=== PATIENT | male | born 1940 | race Caucasian/White ===

== ENCOUNTER 2016-08-14 10:03 | Observation (INO) ==
--- NOTE | 2016-08-14 10:16 | Emergency Department Note ---
Disposition Clinical Impression: Weakness, Elevated troponin I level, Atypical chest pain Disposition: Admitted As Inpatient Condition: Fair Referrals: Beto Guzman MD [Primary Care Provider] - Forms: ED Satisfaction Letter URI/Sore Throat HPI - General Chief Complaint: ED Weakness Stated Complaint: Weakness, chills, cough Time Seen by Provider: 08/14/16 10:10 Source: patient, family Mode of arrival: private vehicle Limitations: no limitations Nursing Notes Reviewed: Yes Vital Signs Reviewed: Yes - History of Present Illness HPI Narrative: Patient reports he had a routine screening colonoscopy on July 19 after which he has had increased generalized weakness. Reportedly has had weakness preceding the colonoscopy as well. He presents today saying that just that he feels "lousy all over" and weak. He reports he occasionally will get some chest heaviness without diaphoresis. His chest discomfort is not exertional. Denies any palpitations. He does report some coughing and producing phlegm for 2-3 days. He states he has had some mild shortness of breath with that. He denies fever, nausea, vomiting or abdominal pain. He has not been having diarrhea or difficulty with bowel function. He denies blood or mucus in stools. Denies any lower extremity swelling, immobilization or injury. He denies any ill exposures. He denies feeling this fatigued in the past. He does report that he occasionally does have some dizziness with standing but has not fallen or had any injuries. He states he has not had any evaluation from his family doctor for weakness. Pt Subjective Complaint: cough, other (Weakness) Onset (ago): week(s) Duration: gradually worsening Severity: moderate Improves with: nothing Worsens with: exertion If sputum, description: other (Unable to describe) Associated symptoms: Reports: cough, chest pain, shortness of breath. Denies: fever, chills, voice changes, myalgias, diaphoresis, headache, rhinorrhea, nasal congestion, sore throat, stiff neck, abdominal pain, nausea, vomiting, diarrhea, dysuria, rash, epistaxis, ear pain Treatments prior to arrival: none - Related Data Home Medications Medication Instructions Recorded Confirmed Aspirin 81 mg PO DAILY 05/12/15 08/14/16 Atorvastatin [Lipitor] 80 mg PO HS 05/12/15 08/14/16 Carvedilol [Coreg] 6.25 mg PO BIDWM 05/12/15 08/14/16 Lansoprazole [Prevacid] 30 mg PO DAILY 05/12/15 08/14/16 Lisinopril [Zestril] 10 mg PO DAILY 05/12/15 08/14/16 Phenytoin [Dilantin] 400 mg PO DAILY 05/12/15 08/14/16 Aloe Vera 50 mg PO DAILY 07/19/16 08/14/16 Cholecalciferol (D-3) [Vitamin D] 3,000 unit PO DAILY 07/19/16 08/14/16 Fluticasone Propionate Nasal 2 spray NS BID 07/19/16 08/14/16 [Flonase] Nitroglycerin [Nitrostat] 0.4 mg SL AD PRN 07/19/16 08/14/16 Venlafaxine HCl [Venlafaxine HCl 75 mg PO DAILY 07/19/16 08/14/16 ER] Omega3,5,6,7,9 No.1/[place] Oil 2 each PO QAM 08/14/16 08/14/16 [Complete [place] Softgel] Previous Rx's Medication Instructions Recorded LORazepam [Ativan] 0.5 mg PO TID PRN #10 tablet 06/21/16 Allergies Allergy/AdvReac Type Severity Reaction Status Date / Time morphine Allergy Hives Verified 06/21/16 21:03 Penicillins [PCN] Allergy Hives Verified 06/21/16 21:03 propoxyphene [From Darvon] Allergy Hives Verified 06/21/16 21:03 All systems ED: reviewed and negative except as stated. URI PMH - Past Medical History Medical history: Reports: diabetes, GERD, hyperlipidemia, hypertension, myocardial infarction, seizures, other Surgical history: Reports: angioplasty/stent, appendectomy, cholecystectomy, knee replacement Psychiatric history: Reports: depression - Social History Smoking Status: Never smoker Alcohol use: Reports: none Drug use: Reports: none Physical Exam - General Limitations: no limitations General appearance: alert, in no apparent distress - Head Head exam: atraumatic, normocephalic, normal inspection - Eye Eye exam: Present: normal appearance, PERRL, EOMI. Absent: scleral icterus, conjunctival injection - ENT ENT exam: normal exam, normal oropharynx, mucous membranes moist - Neck Neck exam: Present: normal inspection, full ROM, trachea midline - Chest Chest inspection: Present: normal inspection, symmetric chest wall rise - Respiratory Respiratory exam: Present: normal lung sounds bilaterally. Absent: respiratory distress, wheezes, prolonged expiratory phase - Cardiovascular Cardiovascular exam: Present: regular rate, normal rhythm, normal heart sounds. Absent: tachycardia - Abdominal Exam Abdominal exam: Present: soft, Non-Tender, normal bowel sounds. Absent: tenderness, distention, guarding, rebound, rigidity - Extremities Exam Extremities exam: Present: normal inspection, full ROM, normal capillary refill. Absent: tenderness, pedal edema, calf tenderness - Expanded Lower Extremity Exam Neurovascular/Tendon exam: Present: normal capillary refill. Absent: motor deficit, sensory deficit, tendon deficit Gait: observed and normal - Back Exam Back exam: Present: normal inspection, full ROM. Absent: tenderness - Neurological Exam Neurological exam: Present: alert, oriented X3, normal gait. Absent: motor sensory deficit - Psychiatric Psychiatric exam: Present: depressed, flat affect - Skin Skin exam: Present: warm, dry, intact, normal color. Absent: rash, diaphoresis , pallor Course Course Narrative: 1240: Care has been discussed with Dr. Arguelles in person. I reviewed the patient' s presentation, labs and x-ray and EKG with him. He is agreeable with him staying at this facility for serial troponins and some gentle hydration. Vital Signs Temperature 97.8 F 08/14/16 10:08 Pulse Rate 106 08/14/16 10:08 Respiratory Rate 18 08/14/16 10:08 Blood Pressure 118/69 08/14/16 10:08 O2 Sat by Pulse Oximetry 99 08/14/16 10:08 Temperature 97.8 F 08/14/16 10:10 Pulse Rate 81 08/14/16 12:09 Respiratory Rate 18 08/14/16 12:09 Blood Pressure 129/67 08/14/16 12:09 O2 Sat by Pulse Oximetry 96 08/14/16 12:09 Oxygen Delivery Oxygen Delivery Room Air Upper Respiratory Infection - Differential Diagnosis Differential Diagnosis: Likely: upper respiratory infection - Medical Records Medical records reviewed: Yes I reviewed the patient's medical records. - Lab Data Lab results reviewed: Yes I reviewed the patient's lab results. Result diagrams: 08/14/16 10:29 08/14/16 10:29 Lab Results 03/06/17 03/06/17 03/06/17 Range/Units 10:29 10:29 10:29 WBC 8.9 (4.3-11.1) K/mcL RBC 4.25 (4.19-5.50) M/mcL Hgb 13.4 (12.9-16.9) g/dL Hct 36.9 L (37.5-50.1) % MCV 86.8 (83.0-100.0) fL MCH 31.5 (28.0-33.3) pg MCHC 36.3 H (31.6-35.5) g/dL RDW 12.8 (11.5-14.5) % Plt Count 175 (140-400) K/mcL MPV 9.2 L (9.4-12.4) fL Immature Gran % 0.2 (0-4) % Seg Neutrophils % 61.9 % Lymphocytes % 24.8 % Monocytes % 10.2 % Eosinophils % 2.7 % Basophils % 0.2 % Neutrophils # 5.5 (1.6-8.9) K/mcL Lymphocytes # 2.2 (0.6-4.6) K/mcL Monocytes # 0.9 (0.0-1.3) K/mcL Eosinophils # 0.2 (0.0-0.6) K/mcL Basophils # 0.0 (0.0-0.2) K/mcL Sodium 132 L (136-145) mEq/L Potassium 4.6 H (3.5-4.5) mEq/L Chloride 99 (98-109) mEq/L Carbon Dioxide 23 (19-29) mEq/L BUN 15 (8-26) mg/dL Creatinine 0.86 (0.72-1.25) mg/dL Est GFR ( Amer) > 60 (> 60) Est GFR (Non-Af Amer) > 60 (> 60) BUN/Creatinine Ratio 17 (6-26) Glucose 109 H (70-99) mg/dL POC Glucose (58-89) Calculated Osmolality 275 L (280-300) Calcium 9.4 (8.6-10.8) mg/dL Total Bilirubin (0.2-1.2) mg/dL Direct Bilirubin (0.0-0.5) mg/dL Indirect Bilirubin (0.0-1.2) mg/dL AST (5-34) Units/L ALT (0-55) Units/L Alkaline Phosphatase (38-126) Units/L Troponin I 0.08 H* (0-0.03) ng/mL Serum Total Protein (6.0-8.3) g/dL Albumin (3.5-5.0) g/dL Globulin (2.4-3.5) g/dL Albumin/Globulin Ratio (1.1-2.2) TSH 1.399 (0.350-4.840) mcIU/mL Urine Color (Yellow) Urine Clarity (Clear) Urine pH (5.0-8.0) pH Units Ur Specific [place] (1.010-1.025) Urine Protein (Neg-Trace) mg/dL Urine Glucose (UA) (Normal) mg/dL Urine Ketones (Negative) mg/dL Urine Blood (Negative) Urine Nitrite (Negative) Urine Bilirubin (Negative) Urine Urobilinogen (Normal) mg/dL Ur Leukocyte Esterase (Negative) Urine Microscopic RBC (0-3) per hpf Urine Microscopic WBC (0-3) per hpf Urine Bacteria (None-Few) per hpf Ur Culture Indicated? (NO) 08/14/16 08/14/16 08/14/16 Range/Units 10:29 10:38 10:52 WBC (4.3-11.1) K/mcL RBC (4.19-5.50) M/mcL Hgb (12.9-16.9) g/dL Hct (37.5-50.1) % MCV (83.0-100.0) fL MCH (28.0-33.3) pg MCHC (31.6-35.5) g/dL RDW (11.5-14.5) % Plt Count (140-400) K/mcL MPV (9.4-12.4) fL Immature Gran % (0-4) % Seg Neutrophils % % Lymphocytes % % Monocytes % % Eosinophils % % Basophils % % Neutrophils # (1.6-8.9) K/mcL Lymphocytes # (0.6-4.6) K/mcL Monocytes # (0.0-1.3) K/mcL Eosinophils # (0.0-0.6) K/mcL Basophils # (0.0-0.2) K/mcL Sodium (136-145) mEq/L Potassium (3.5-4.5) mEq/L Chloride (98-109) mEq/L Carbon Dioxide (19-29) mEq/L BUN (8-26) mg/dL Creatinine (0.72-1.25) mg/dL Est GFR ( Amer) (> 60) Est GFR (Non-Af Amer) (> 60) BUN/Creatinine Ratio (6-26) Glucose (70-99) mg/dL POC Glucose 121 H (58-89) Calculated Osmolality (280-300) Calcium (8.6-10.8) mg/dL Total Bilirubin 0.4 (0.2-1.2) mg/dL Direct Bilirubin 0.2 (0.0-0.5) mg/dL Indirect Bilirubin 0.2 (0.0-1.2) mg/dL AST 19 (5-34) Units/L ALT 20 (0-55) Units/L Alkaline Phosphatase 75 (38-126) Units/L Troponin I (0-0.03) ng/mL Serum Total Protein 7.1 (6.0-8.3) g/dL Albumin 3.8 (3.5-5.0) g/dL Globulin 3.3 (2.4-3.5) g/dL Albumin/Globulin Ratio 1.2 (1.1-2.2) TSH (0.350-4.840) mcIU/mL Urine Color Yellow (Yellow) Urine Clarity Clear (Clear) Urine pH 7.0 (5.0-8.0) pH Units Ur Specific [place] 1.015 (1.010-1.025) Urine Protein Negative (Neg-Trace) mg/dL Urine Glucose (UA) Normal (Normal) mg/dL Urine Ketones Negative (Negative) mg/dL Urine Blood Small H (Negative) Urine Nitrite Negative (Negative) Urine Bilirubin Negative (Negative) Urine Urobilinogen Normal (Normal) mg/dL Ur Leukocyte Esterase Negative (Negative) Urine Microscopic RBC 3-5 H (0-3) per hpf Urine Microscopic WBC 0-3 (0-3) per hpf Urine Bacteria Few (None-Few) per hpf Ur Culture Indicated? NO (NO) 08/14/16 Range/Units 12:00 WBC (4.3-11.1) K/mcL RBC (4.19-5.50) M/mcL Hgb (12.9-16.9) g/dL Hct (37.5-50.1) % MCV (83.0-100.0) fL MCH (28.0-33.3) pg MCHC (31.6-35.5) g/dL RDW (11.5-14.5) % Plt Count (140-400) K/mcL MPV (9.4-12.4) fL Immature Gran % (0-4) % Seg Neutrophils % % Lymphocytes % % Monocytes % % Eosinophils % % Basophils % % Neutrophils # (1.6-8.9) K/mcL Lymphocytes # (0.6-4.6) K/mcL Monocytes # (0.0-1.3) K/mcL Eosinophils # (0.0-0.6) K/mcL Basophils # (0.0-0.2) K/mcL Sodium (136-145) mEq/L Potassium (3.5-4.5) mEq/L Chloride (98-109) mEq/L Carbon Dioxide (19-29) mEq/L BUN (8-26) mg/dL Creatinine (0.72-1.25) mg/dL Est GFR ( Amer) (> 60) Est GFR (Non-Af Amer) (> 60) BUN/Creatinine Ratio (6-26) Glucose (70-99) mg/dL POC Glucose (58-89) Calculated Osmolality (280-300) Calcium (8.6-10.8) mg/dL Total Bilirubin (0.2-1.2) mg/dL Direct Bilirubin (0.0-0.5) mg/dL Indirect Bilirubin (0.0-1.2) mg/dL AST (5-34) Units/L ALT (0-55) Units/L Alkaline Phosphatase (38-126) Units/L Troponin I 0.08 H* (0-0.03) ng/mL Serum Total Protein (6.0-8.3) g/dL Albumin (3.5-5.0) g/dL Globulin (2.4-3.5) g/dL Albumin/Globulin Ratio (1.1-2.2) TSH (0.350-4.840) mcIU/mL Urine Color (Yellow) Urine Clarity (Clear) Urine pH (5.0-8.0) pH Units Ur Specific [place] (1.010-1.025) Urine Protein (Neg-Trace) mg/dL Urine Glucose (UA) (Normal) mg/dL Urine Ketones (Negative) mg/dL Urine Blood (Negative) Urine Nitrite (Negative) Urine Bilirubin (Negative) Urine Urobilinogen (Normal) mg/dL Ur Leukocyte Esterase (Negative) Urine Microscopic RBC (0-3) per hpf Urine Microscopic WBC (0-3) per hpf Urine Bacteria (None-Few) per hpf Ur Culture Indicated? (NO) - Radiology Data Radiology results reviewed: Yes I reviewed the patient's radiology results. Single view chest x-ray is performed. This does not demonstrate evidence for infiltrate, effusion, pneumothorax, foreign body or heart failure. The cardiac silhouette is normal. I do not see abnormality to the osseous structures of the chest. This is on my interpretation. Impressions Chest X-Ray 08/14/16 10:16 IMPRESSION: No acute abnormality. D/ / Aaron Candelario MD / Aaron Candelario MD Interpreting Provider: Aaron Candelario MD - EKG Data EKG attestation: Yes I reviewed and interpreted this EKG. EKG shows normal: sinus rhythm, axis, intervals, QRS complexes, ST-T waves Rate: normal (87) Interpretation: no acute changes, normal EKG
[2016-08-14 10:33] LABS: Basophils % 0.2 %; Eosinophils # 0.2 K/mcL (0.0-0.6); Eosinophils % 2.7 %; Hematocrit 36.9 % (37.5-50.1); Hemoglobin 13.4 g/dL (12.9-16.9); Immature Granulocytes % 0.2 % (0-4); Lymphocytes # 2.2 K/mcL (0.6-4.6); Lymphocytes % 24.8 %; Mean Corpuscular HGB Conc 36.3 g/dL (31.6-35.5); Mean Corpuscular Hemoglobin 31.5 pg (28.0-33.3); Mean Corpuscular Volume 86.8 fL (83.0-100.0); Mean Platelet Volume 9.2 fL (9.4-12.4); Monocytes # 0.9 K/mcL (0.0-1.3); Monocytes % 10.2 %; Neutrophils # 5.5 K/mcL (1.6-8.9); Platelet Count 175 K/mcL (140-400); Red Blood Count 4.25 M/mcL (4.19-5.50); Red Cell Distribution Width 12.8 % (11.5-14.5); Segmented Neutrophils % 61.9 %
[2016-08-14 10:46] LABS: BUN/Creatinine Ratio 17 (6-26); Blood Urea Nitrogen 15 mg/dL (8-26); Calcium 9.4 mg/dL (8.6-10.8); Carbon Dioxide 23 mEq/L (19-29); Chloride 99 mEq/L (98-109); Glucose 109 mg/dL (70-99); Osmolality,Calculated 275 (280-300); Potassium 4.6 mEq/L (3.5-4.5); Sodium 132 mEq/L (136-145); eGFR For African Americans > 60 (> 60); eGFR For Non-African Americans > 60 (> 60)
[2016-08-14 10:50] LABS: Albumin 3.8 g/dL (3.5-5.0); Albumin/Globulin Ratio 1.2 (1.1-2.2); Bilirubin,Direct 0.2 mg/dL (0.0-0.5); Bilirubin,Indirect 0.2 mg/dL (0.0-1.2); Bilirubin,Total 0.4 mg/dL (0.2-1.2); Globulin 3.3 g/dL (2.4-3.5); Total Protein 7.1 g/dL (6.0-8.3)
[2016-08-14 10:56] LABS: Bilirubin,Urine Negative (Negative); Blood,Urine Small (Negative); Clarity,Urine Clear (Clear); Color,Urine Yellow (Yellow); Glucose,Urine (UA) Normal (Normal); Ketones,Urine Negative (Negative); Leukocyte Esterase,Urine Negative (Negative); Nitrite,Urine Negative (Negative); Protein,Urine Negative (Neg-Trace); Specific Gravity,Urine 1.015 (1.010-1.025); Urobilinogen,Urine Normal (Normal)
[2016-08-14 11:03] LABS: Bacteria,Urine Few per hpf (None-Few); WBC,Urine 0-3 per hpf (0-3)
[2016-08-14 11:07] LABS: Thyroid Stimulating Hormone 1.399 mcIU/mL (0.350-4.840)
[2016-08-14] MEDS ORDERED: MOM Conc 10 ML UD.LIQ PO PRN (13:07)
[2016-08-14] MEDS ORDERED: Naloxone 0.4 MG/ML INJ IVP PRN (13:07)
[2016-08-14] MEDS ORDERED: *HR* LORazepam 0.5 MG TABLET PO PRN (13:07)
[2016-08-14] MEDS ORDERED: Nitroglycerin 0.4 MG TAB.SUBL SL PRN (13:07)
[2016-08-14] MEDS ORDERED: Ondansetron 4 MG/2 ML VIAL IVP PRN (13:07)
[2016-08-14] MEDS ORDERED: Acetaminophen 325 MG TABLET PO PRN (13:07)
[2016-08-14] MEDS: 0.9 % Sodium Chloride 1,000 ML IVC SCH ×2 (14:05→21:09)
--- NOTE | 2016-08-14 17:20 | Electrocardiograph Report ---
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
[2016-08-14] MEDS: Fluticasone Propionate Nasal 50 MCG/SPRAY BOTTLE NS SCH (21:09)
[2016-08-14] MEDS ORDERED: Venlafaxine XR (24 HR) 37.5 MG CAP.ER.24H PO SCH (21:30)
[2016-08-15] MEDS: 0.9 % Sodium Chloride 1,000 ML IVC SCH (06:07)
[2016-08-15] MEDS ORDERED: Aspirin 81 MG TAB.CHEW PO SCH (09:00)
[2016-08-15] MEDS ORDERED: Venlafaxine XR (24 HR) 37.5 MG CAP.ER.24H PO SCH (09:00)
--- NOTE | 2016-08-15 09:45 | Internal Med History&Physical ---
Date of Encounter: 08/15/16 Time of Encounter: 09:15 Assessment and Plan (1) Weakness Current visit: No Status: Acute I told him I felt the most likely cause was viral infection based on his history of coughing and constipation, and 's viral illness symptoms. We will continue with IV fluids and monitor today. (2) Anxiety Current visit: No Status: Acute Continue Ativan as needed. Internal Medicine - H&P: HPI Chief complaint: Cough and weakness Admitted From: Home Plans for Post Hospital Care: Home History of present illness: Mr. Peralta is a 76 year old male who came to emergency room complaining of cough with general weakness for the last week. The cough was nonproductive. Denies focal weakness of an extremity but states he just felt generally weak. He has had no falls at home. He has been able to go up and down his basement steps as usual. Reports he has been slightly more constipated in the past week. Denies pain or significant dyspnea. He was evaluated in emergency room and admitted to [facility] floor for ongoing care needs. He states he still feels weak overall. He states he had an episode this morning after returning from the bathroom where he felt as if he were going to faint. Reports his had a "cold" in the past week. Past Med Surg Social Fam HX - Past Medical History Medical history: diabetes, GERD, hyperlipidemia, hypertension, myocardial infarction, seizures, other Psychiatric history: depression - Past Surgical History Surgical History: angioplasty/stent, appendectomy, cholecystectomy, knee replacement - Social History Smoking Status: Never smoker Smokeless Tobacco Status: No Alcohol use: none Drug use: none - Family History Mother Living Status: Age at : 89 Cause of : heart issues Hx Family Cardiac Disorders: Yes Hx Family Respiratory Disorders: No Hx Family Cancer: No Hx Family GI Disorders: No Hx Family Genitourinary Disorders: No Hx Family Endocrine Disorder: No Hx Family Musculoskeletal Disorders: Yes (OA) Hx Family Neuromuscular Disorders: No Hx Family Neurologic Disorders: No Hx Family HEENT Disorders: No Hx Family Autoimmune Disorders: No Hx Family Reproductive Disorders: No Hx Family Psychosocial Disorders: No Hx Family Medical Disorders: No Internal Medicine - H&P: Meds Aspirin 81 mg PO DAILY 05/12/15 [History] Atorvastatin [Lipitor] 80 mg PO HS 05/12/15 [History] Carvedilol [Coreg] 6.25 mg PO BIDWM 05/12/15 [History] Lansoprazole [Prevacid] 30 mg PO DAILY 05/12/15 [History] Lisinopril [Zestril] 10 mg PO DAILY 05/12/15 [History] Phenytoin [Dilantin] 400 mg PO HS 05/12/15 [History] LORazepam [Ativan] 0.5 mg PO TID PRN #10 tablet 06/21/16 [Rx] Aloe Vera 50 mg PO DAILY 07/19/16 [History] Cholecalciferol (D-3) [Vitamin D] 3,000 unit PO DAILY 07/19/16 [History] Fluticasone Propionate Nasal [Flonase] 2 spray NS BID 07/19/16 [History] Nitroglycerin [Nitrostat] 0.4 mg SL AD PRN 07/19/16 [History] Venlafaxine HCl [Venlafaxine HCl ER] 75 mg PO DAILY 07/19/16 [History] Omega3,5,6,7,9 No.1/[place] Oil [Complete [place] Softgel] 2 each PO QAM 08/14/16 [ History] Allergies morphine Allergy (Verified 06/21/16 21:03) Hives Penicillins [PCN] Allergy (Verified 06/21/16 21:03) Hives propoxyphene [From Darvon] Allergy (Verified 06/21/16 21:03) Hives All Systems PM: A 10-system review of systems was performed and is negative for pertinent findings except as documented above in the HPI. Review of systems: Review of systems from his April 2016 [facility] stay were reviewed and revised below. Gen.: His weight has minimally changed from 86.182 kg at the June 2014 hospitalization to 81.647 kg at present. Cardiovascular: Has history of hypertension. He states he had an FL June 2010 with a single stent placed post FL. He had pulmonary embolism in 2011. He denies heart failure. Respiratory: He smoked from age [age] but denies chronic lung disease and does not wear home oxygen. GI: He has had cholecystectomy and has GERD but denies disorders of his liver or exocrine pancreas. : He has remote history of kidney stones. He denies other kidney or bladder disorders. Neurologic: He has history of seizure disorder with last seizure approximately 30 years ago. He denies large distribution strokes. Endocrine: He was diagnosed with DM 2 approximately 2004. He states it is diet- controlled. Hemoglobin A1c was 5.5% 09/08/2015. He has hyperlipidemia but no known thyroid disease Hematology/oncology: Denies blood disorders or internal cancers. 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 - Constitutional Vitals: Temp Pulse Resp BP Pulse Ox 98.2 F 94 18 130/76 93 L 08/15/16 06:56 08/15/16 06:56 08/15/16 06:56 08/15/16 06:56 08/15/16 06:56 Exam: Gen.: He is a well-developed well-nourished male who is sitting on the bed in no acute distress HEENT: Head is atraumatic and normocephalic. Eyes: EOMI. There is no scleral icterus. Mouth: Mucosa is moist. Neck: Supple and nontender. There is no thyromegaly or adenopathy noted. Heart: Regular without murmurs gallops or ectopics. Lungs: No wheezes or crackles are heard. Abdomen: Soft and nontender. No masses or guarding are noted. Extremities: There is no cyanosis edema or clubbing noted. Dorsalis pedis and posttibial pulses are 1-2 over 2 bilaterally. Neurologic: Mental status: He is talkative and is a good historian. Cranial nerves: Smile is symmetric. Forehead wrinkles bilaterally. Tongue protrudes midline. EOMI. Motor: There is no pronator drift. He is able to lift both legs off the bed. Ankle and arm flexion and extension strength against resistance is symmetric. Rapid finger movements show very minimal slowness of the right thumb and index finger maneuver compared to the left. Cerebellar: Finger to nose is intact bilaterally. Skin: Warm and dry Internal Med - H&P Results - Labs CBC & Chem 7: 08/14/16 10:29 08/14/16 10:29 Labs: Cardiac Enzymes 08/14/16 08/14/16 08/15/16 Range/Units 13:21 19:30 01:20 Troponin I 0.08 H* 0.06 H* 0.05 H* (0-0.03) ng/mL
[2016-08-15] MEDS: Fluticasone Propionate Nasal 50 MCG/SPRAY BOTTLE NS SCH (09:55)
[2016-08-15] MEDS ORDERED: 0.9 % Sodium Chloride 1,000 ML IVC SCH (10:08)
[2016-08-15 10:30] VITALS: BP 139/78
[2016-08-15] MEDS ORDERED: *HR* Enoxaparin 100 MG/ML SYRINGE SQ ONE (11:39)
--- NOTE | 2016-08-15 13:09 | Discharge Summary ---
Date of Encounter: 08/15/16 Time of Encounter: 13:00 - Discharge Diagnosis (1) Pulmonary embolism and infarction Priority: Primary Status: Acute (2) Anxiety Priority: Secondary Status: Chronic - Discharge Medications Home Medications: Aspirin 81 mg PO DAILY 05/12/15 [History] Atorvastatin [Lipitor] 80 mg PO HS 05/12/15 [History] Carvedilol [Coreg] 6.25 mg PO BIDWM 05/12/15 [History] Lansoprazole [Prevacid] 30 mg PO DAILY 05/12/15 [History] Lisinopril [Zestril] 10 mg PO DAILY 05/12/15 [History] Phenytoin [Dilantin] 400 mg PO HS 05/12/15 [History] LORazepam [Ativan] 0.5 mg PO TID PRN #10 tablet 06/21/16 [Rx] Aloe Vera 50 mg PO DAILY 07/19/16 [History] Cholecalciferol (D-3) [Vitamin D] 3,000 unit PO DAILY 07/19/16 [History] Fluticasone Propionate Nasal [Flonase] 2 spray NS BID 07/19/16 [History] Nitroglycerin [Nitrostat] 0.4 mg SL AD PRN 07/19/16 [History] Venlafaxine HCl [Venlafaxine HCl ER] 75 mg PO DAILY 07/19/16 [History] Omega3,5,6,7,9 No.1/[place] Oil [Complete [place] Softgel] 2 each PO QAM 08/14/16 [ History] Allergies/Adverse Reactions: Allergies morphine Allergy (Verified 06/21/16 21:03) Hives Penicillins [PCN] Allergy (Verified 06/21/16 21:03) Hives propoxyphene [From Darvon] Allergy (Verified 06/21/16 21:03) Hives Procedures/tests Complete & Pending: Procedures Performed prior 72 hours Category Date Time Status CTA chest [CT angio chest] [CT] Routine Cat Scan 08/15/16 11:38 Draft EKG [ECG 12 lead ECG] [ECG] Stat Y 08/15/16 11:13 Ordered Date of admission: 08/14/16 12:52 Primary care physician: Beto Guzman MD - Patient Status Disposition: Transfer Short-Term Hosp Condition: Fair - Discharge Instructions Hospital course: Mr. Peralta is a 76 year old male who came to emergency room complaining of cough with general weakness for the last week. The cough was nonproductive. Denies focal weakness of an extremity but states he just felt generally weak. He has had no falls at home. He has been able to go up and down his basement steps as usual. Reports he has been slightly more constipated in the past week. Denies pain or significant dyspnea. He was evaluated in emergency room and admitted to [facility] for ongoing care needs. He states he still feels weak overall. He states he had an episode this morning after returning from the bathroom where he felt as if he were going to faint. Reports his had a "cold" in the past week. Initial orders were written by the emergency room physician. I saw him the morning of August 15 and performed the history and physical. Shortly after I saw him it was noted he developed widening of the QRS on his telemetry. EKG confirmed the presence of a new right bundle branch block. A stat d-dimer was ordered and returned significantly elevated at 12,854. He was given a therapeutic level dose of Lovenox and sent for CTA to rule out pulmonary embolus. The chest CTA showed multilobar bilateral pulmonary emboli involving all lobes with saddle embolus present. There was suspicion for pulmonary infarcts in the left upper lobe and left lower lobe. I discussed these findings with the patient and his family. They agreed on transfer to [facility]. Contact was made with [facility] and he was accepted in transfer. He will be transported by helicopter. - Time Spent with Patient Total time spent providing and/or coordinating discharge services: - Constitutional Vitals: Temp Pulse Resp BP Pulse Ox 98.2 F 98 18 139/78 84 L 08/15/16 10:29 08/15/16 10:29 08/15/16 10:29 08/15/16 10:29 08/15/16 12:38
--- NOTE | 2016-08-15 14:30 | Electrocardiograph Report ---
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
== END 2016-08-15 15:25 | disposition short-term general hospital (02) ==
LOC: INPPIK 10:03 → EMEROOPIK 10:03 → INPPIK 13:08
PROVIDERS: ADMIT Internal Medicine; ATTEND Internal Medicine

== ENCOUNTER 2016-12-14 09:29 | Inpatient (IN) ==
[2016-12-14] MEDS ORDERED: 0.9 % Sodium Chloride 1,000 ML IVC ONE (09:34)
[2016-12-14] MEDS ORDERED: Ondansetron 4 MG/2 ML VIAL IVP ONE (09:34)
--- NOTE | 2016-12-14 09:56 | Emergency Department Note ---
Disposition Clinical Impression: Hyponatremia syndrome, Weakness generalized Disposition: Admitted As Inpatient Condition: Fair Referrals: Beto Guzman MD [Primary Care Provider] - Forms: ED Satisfaction Letter Weakness HPI - General Chief complaint: ED Urogenital-Male Stated complaint: UTI, FREQ URINATION SM AMTS Time Seen by Provider: 12/14/16 09:33 Source: patient, family Mode of arrival: private vehicle Limitations: no limitations Nursing Notes Reviewed: Yes Vital Signs Reviewed: Yes - History of Present Illness HPI Narrative: Patient presents from home stating that he is "just sick". He dates his illness back to his past Sunday when he saw his family doctor, was diagnosed as prostatitis and was started on Bactrim. He states he started feeling worse on Sunday and thought it might have been secondary to the Bactrim and stopped the Bactrim. Since Sunday he has been getting progressively worse with increased nausea, weakness and "no energy". He has had decreased oral intake with nausea but no vomiting. States he has had sweats without fever. Although he feels weak he states he has not felt like he is going to fall down or pass out. He has had increased urinary frequency is urinating about every hour without burning. He has reported some vague discomfort in the suprapubic region of his abdomen. He denies diarrhea, constipation or bloody or black stools. He denies chest pain or palpitations or shortness of breath. He has not been having cough or wheezing. Denies headache, visual changes or any localized numbness, tingling or weakness. He has not been having periods of confusion. Pt Subjective Complaint: generalized weakness/fatigue Onset (ago): day(s) Duration: gradually worsening Location: generalized Migration: none Pain Severity: none, mild Pain Scale: 0 If pain, quality: aching Improves with: none Worsens with: other (Palpation of the lower abdomen) Context: recent illness Associated symptoms: Reports: diaphoresis, loss of appetite, nausea/vomiting. Denies: chest pain, confusion, dark stools, dysuria, easy bruising, fever/chills , headaches, myalgias, shortness of breath, syncope - Related Data Home Medications Medication Instructions Recorded Confirmed Aspirin 81 mg PO DAILY 05/12/15 12/14/16 Atorvastatin [Lipitor] 80 mg PO HS 05/12/15 12/14/16 Carvedilol [Coreg] 6.25 mg PO BIDWM 05/12/15 12/14/16 Lansoprazole [Prevacid] 30 mg PO DAILY 05/12/15 12/14/16 Lisinopril [Zestril] 10 mg PO DAILY 05/12/15 12/14/16 Phenytoin [Dilantin] 400 mg PO HS 05/12/15 12/14/16 Cholecalciferol (D-3) [Vitamin D] 3,000 unit PO DAILY 07/19/16 12/14/16 Fluticasone Propionate Nasal 2 spray NS BID 07/19/16 12/14/16 [Flonase] Nitroglycerin [Nitrostat] 0.4 mg SL AD PRN 07/19/16 12/14/16 Venlafaxine HCl [Venlafaxine HCl 75 mg PO DAILY 07/19/16 12/14/16 ER] Omega3,5,6,7,9 No.1/[place] Oil 2 each PO QAM 08/14/16 12/14/16 [Complete [place] Softgel] Warfarin [Coumadin] 5 mg PO AD 10/29/16 12/14/16 Meclizine [Antivert] 25 - 50 mg PO TID PRN 12/14/16 12/14/16 Allergies Allergy/AdvReac Type Severity Reaction Status Date / Time morphine Allergy Hives Verified 10/29/16 18:14 Penicillins [PCN] Allergy Hives Verified 10/29/16 18:14 propoxyphene [From Darvon] Allergy Hives Verified 10/29/16 18:14 All systems ED: reviewed and negative except as stated. Past Medical History - Past Medical History Attestation: Yes The following information was validated with the patient. Source: patient, old records reviewed, obtained from family, nursing notes reviewed Medical history: Reports: arthritis, CHF, coronary artery disease, DVT, GERD, hyperlipidemia, hypertension, myocardial infarction, peripheral artery disease, pulmonary embolus, seizures Surgical history: Reports: angioplasty/stent, appendectomy, cholecystectomy, knee replacement Psychiatric history: Reports: depression - Social History Smoking Status: Never smoker Smokeless Tobacco Status: No Alcohol use: Reports: none Drug use: Reports: none Physical Exam - General Limitations: no limitations General appearance: alert, in no apparent distress, other (Appears Weak and tired.) - Head Head exam: atraumatic, normocephalic, normal inspection - Eye Eye exam: Present: normal appearance, PERRL, EOMI. Absent: scleral icterus, conjunctival injection - ENT ENT exam: normal exam, normal oropharynx, mucous membranes moist - Neck Neck exam: Present: normal inspection, full ROM, trachea midline - Chest Chest inspection: Present: normal inspection, symmetric chest wall rise - Respiratory Respiratory exam: Present: normal lung sounds bilaterally. Absent: respiratory distress, wheezes, prolonged expiratory phase - Cardiovascular Cardiovascular exam: Present: regular rate, normal rhythm, normal heart sounds. Absent: tachycardia - Abdominal Exam Abdominal exam: Present: soft, normal bowel sounds. Absent: distention, guarding, rebound, rigidity, Gates's sign, tenderness at McBurney's Point, pulsatile mass, hernia Abdominal tenderness: Present: suprapubic, mild, moderate - Extremities Exam Extremities exam: Present: normal inspection, full ROM, normal capillary refill. Absent: tenderness, pedal edema, calf tenderness - Expanded Lower Extremity Exam Neurovascular/Tendon exam: Present: normal capillary refill. Absent: motor deficit, sensory deficit, tendon deficit Gait: observed and normal - Back Exam Back exam: Present: normal inspection, full ROM. Absent: tenderness, CVA tenderness (R), CVA tenderness (L), vertebral tenderness - Neurological Exam Neurological exam: Present: alert, oriented X3 - Psychiatric Psychiatric exam: Present: normal affect, normal mood - Skin Skin exam: Present: warm, dry, intact, pallor. Absent: rash, diaphoresis Course Course Narrative: 1107: Care has been discussed with Dr. Arguelles who agrees with continued observation and hydration of this patient. He will need repeat chemistries tomorrow morning to evaluate improvement on his significant hyponatremia. Verbal orders are obtained for his observation period. Vital Signs Temperature 98.8 F 12/14/16 09:33 Pulse Rate 73 12/14/16 09:33 Respiratory Rate 18 12/14/16 09:33 Blood Pressure 148/79 12/14/16 09:33 O2 Sat by Pulse Oximetry 99 12/14/16 09:33 Temperature 98.8 F 12/14/16 09:33 Pulse Rate 73 12/14/16 10:54 Respiratory Rate 16 12/14/16 10:54 Blood Pressure 144/75 12/14/16 10:54 O2 Sat by Pulse Oximetry 95 12/14/16 10:54 Oxygen Delivery Oxygen Delivery Room Air Weakness - Differential Diagnosis Differential Diagnosis: Likely: sepsis/infection, dehydration, metabolic - Medical Records Medical records reviewed: Yes I reviewed the patient's medical records. - Lab Data Lab results reviewed: Yes I reviewed the patient's lab results. Result diagrams: 12/14/16 10:10 12/14/16 10:10 Lab Results 12/14/16 12/14/16 12/14/16 Range/Units 10:00 10:10 10:10 WBC (4.3-11.1) K/mcL RBC (4.19-5.50) M/mcL Hgb (12.9-16.9) g/dL Hct (37.5-50.1) % MCV (83.0-100.0) fL MCH (28.0-33.3) pg MCHC (31.6-35.5) g/dL RDW (11.5-14.5) % Plt Count (140-400) K/mcL MPV (9.4-12.4) fL Immature Gran % (0-4) % Seg Neutrophils % % Lymphocytes % % Monocytes % % Eosinophils % % Basophils % % Neutrophils # (1.6-8.9) K/mcL Lymphocytes # (0.6-4.6) K/mcL Monocytes # (0.0-1.3) K/mcL Eosinophils # (0.0-0.6) K/mcL Basophils # (0.0-0.2) K/mcL PT (9.4-12.1) Seconds INR VBG Lactic Acid (0.5-2.2) mmol/L Sodium 122 L (136-145) mEq/L Potassium 4.5 (3.5-4.5) mEq/L Chloride 91 L (98-109) mEq/L Carbon Dioxide 22 (19-29) mEq/L BUN 13 (8-26) mg/dL Creatinine 0.84 (0.72-1.25) mg/dL Est GFR ( Amer) > 60 (> 60) Est GFR (Non-Af Amer) > 60 (> 60) BUN/Creatinine Ratio 15 (6-26) Glucose 100 H (70-99) mg/dL Calculated Osmolality 254 L (280-300) Calcium 9.0 (8.6-10.8) mg/dL Total Bilirubin 0.4 (0.2-1.2) mg/dL Direct Bilirubin 0.2 (0.0-0.5) mg/dL Indirect Bilirubin 0.2 (0.0-1.2) mg/dL AST 31 (5-34) Units/L ALT 28 (0-55) Units/L Alkaline Phosphatase 63 (38-126) Units/L Troponin I (0-0.03) ng/mL Serum Total Protein 7.5 (6.0-8.3) g/dL Albumin 4.1 (3.5-5.0) g/dL Globulin 3.4 (2.4-3.5) g/dL Albumin/Globulin Ratio 1.2 (1.1-2.2) Amylase 120 (25-125) Units/L Lipase 61 (8-78) Units/L Urine Color Yellow (Yellow) Urine Clarity Clear (Clear) Urine pH 7.5 (5.0-8.0) pH Units Ur Specific [place] 1.015 (1.010-1.025) Urine Protein Negative (Neg-Trace) mg/dL Urine Glucose (UA) Normal (Normal) mg/dL Urine Ketones Negative (Negative) mg/dL Urine Blood Small H (Negative) Urine Nitrite Negative (Negative) Urine Bilirubin Negative (Negative) Urine Urobilinogen Normal (Normal) mg/dL Ur Leukocyte Esterase Negative (Negative) Urine Microscopic RBC 0-3 (0-3) per hpf Urine Microscopic WBC 0-3 (0-3) per hpf Ur Squamous Epith Cells Few (None-Few) per lpf Urine Bacteria Few (None-Few) per hpf Ur Culture Indicated? NO (NO) Phenytoin (10-20) mcg/mL 12/14/16 12/14/16 12/14/16 Range/Units 10:10 10:10 10:10 WBC (4.3-11.1) K/mcL RBC (4.19-5.50) M/mcL Hgb (12.9-16.9) g/dL Hct (37.5-50.1) % MCV (83.0-100.0) fL MCH (28.0-33.3) pg MCHC (31.6-35.5) g/dL RDW (11.5-14.5) % Plt Count (140-400) K/mcL MPV (9.4-12.4) fL Immature Gran % (0-4) % Seg Neutrophils % % Lymphocytes % % Monocytes % % Eosinophils % % Basophils % % Neutrophils # (1.6-8.9) K/mcL Lymphocytes # (0.6-4.6) K/mcL Monocytes # (0.0-1.3) K/mcL Eosinophils # (0.0-0.6) K/mcL Basophils # (0.0-0.2) K/mcL PT (9.4-12.1) Seconds INR VBG Lactic Acid 1.3 (0.5-2.2) mmol/L Sodium (136-145) mEq/L Potassium (3.5-4.5) mEq/L Chloride (98-109) mEq/L Carbon Dioxide (19-29) mEq/L BUN (8-26) mg/dL Creatinine (0.72-1.25) mg/dL Est GFR ( Amer) (> 60) Est GFR (Non-Af Amer) (> 60) BUN/Creatinine Ratio (6-26) Glucose (70-99) mg/dL Calculated Osmolality (280-300) Calcium (8.6-10.8) mg/dL Total Bilirubin (0.2-1.2) mg/dL Direct Bilirubin (0.0-0.5) mg/dL Indirect Bilirubin (0.0-1.2) mg/dL AST (5-34) Units/L ALT (0-55) Units/L Alkaline Phosphatase (38-126) Units/L Troponin I 0.00 (0-0.03) ng/mL Serum Total Protein (6.0-8.3) g/dL Albumin (3.5-5.0) g/dL Globulin (2.4-3.5) g/dL Albumin/Globulin Ratio (1.1-2.2) Amylase (25-125) Units/L Lipase (8-78) Units/L Urine Color (Yellow) Urine Clarity (Clear) Urine pH (5.0-8.0) pH Units Ur Specific Dillon (1.010-1.025) Urine Protein (Neg-Trace) mg/dL Urine Glucose (UA) (Normal) mg/dL Urine Ketones (Negative) mg/dL Urine Blood (Negative) Urine Nitrite (Negative) Urine Bilirubin (Negative) Urine Urobilinogen (Normal) mg/dL Ur Leukocyte Esterase (Negative) Urine Microscopic RBC (0-3) per hpf Urine Microscopic WBC (0-3) per hpf Ur Squamous Epith Cells (None-Few) per lpf Urine Bacteria (None-Few) per hpf Ur Culture Indicated? (NO) Phenytoin 13.7 (10-20) mcg/mL 12/14/16 12/14/16 Range/Units 10:10 10:10 WBC 8.8 (4.3-11.1) K/mcL RBC 4.51 (4.19-5.50) M/mcL Hgb 14.1 (12.9-16.9) g/dL Hct 37.4 L (37.5-50.1) % MCV 82.9 L (83.0-100.0) fL MCH 31.3 (28.0-33.3) pg MCHC 37.7 H (31.6-35.5) g/dL RDW 12.8 (11.5-14.5) % Plt Count 238 (140-400) K/mcL MPV 9.0 L (9.4-12.4) fL Immature Gran % 0.2 (0-4) % Seg Neutrophils % 61.8 % Lymphocytes % 28.6 % Monocytes % 8.2 % Eosinophils % 1.0 % Basophils % 0.2 % Neutrophils # 5.5 (1.6-8.9) K/mcL Lymphocytes # 2.5 (0.6-4.6) K/mcL Monocytes # 0.7 (0.0-1.3) K/mcL Eosinophils # 0.1 (0.0-0.6) K/mcL Basophils # 0.0 (0.0-0.2) K/mcL PT 18.0 H (9.4-12.1) Seconds INR 1.7 VBG Lactic Acid (0.5-2.2) mmol/L Sodium (136-145) mEq/L Potassium (3.5-4.5) mEq/L Chloride (98-109) mEq/L Carbon Dioxide (19-29) mEq/L BUN (8-26) mg/dL Creatinine (0.72-1.25) mg/dL Est GFR ( Amer) (> 60) Est GFR (Non-Af Amer) (> 60) BUN/Creatinine Ratio (6-26) Glucose (70-99) mg/dL Calculated Osmolality (280-300) Calcium (8.6-10.8) mg/dL Total Bilirubin (0.2-1.2) mg/dL Direct Bilirubin (0.0-0.5) mg/dL Indirect Bilirubin (0.0-1.2) mg/dL AST (5-34) Units/L ALT (0-55) Units/L Alkaline Phosphatase (38-126) Units/L Troponin I (0-0.03) ng/mL Serum Total Protein (6.0-8.3) g/dL Albumin (3.5-5.0) g/dL Globulin (2.4-3.5) g/dL Albumin/Globulin Ratio (1.1-2.2) Amylase (25-125) Units/L Lipase (8-78) Units/L Urine Color (Yellow) Urine Clarity (Clear) Urine pH (5.0-8.0) pH Units Ur Specific [place] (1.010-1.025) Urine Protein (Neg-Trace) mg/dL Urine Glucose (UA) (Normal) mg/dL Urine Ketones (Negative) mg/dL Urine Blood (Negative) Urine Nitrite (Negative) Urine Bilirubin (Negative) Urine Urobilinogen (Normal) mg/dL Ur Leukocyte Esterase (Negative) Urine Microscopic RBC (0-3) per hpf Urine Microscopic WBC (0-3) per hpf Ur Squamous Epith Cells (None-Few) per lpf Urine Bacteria (None-Few) per hpf Ur Culture Indicated? (NO) Phenytoin (10-20) mcg/mL - Radiology Data Radiology results reviewed: Yes I reviewed the patient's radiology results. CT is performed of the abdomen and pelvis without oral or IV contrast. Basal lungs are free of infiltrate. The liver, spleen and pancreas appear normal. The aorta is normal caliber and there is no other retroperitoneal abnormality. Kidneys are without stone or obstruction. Bowel was not inflammation, obstruction or perforation. Bladder is mildly distended with a large prostate. Abdominal wall and osseous structures appear unremarkable. This is on my interpretation. Impressions Abdomen/Pelvis CT 12/14/16 09:34 IMPRESSION: 1. Nonobstructing left nephrolithiasis. Stable left kidney mild upper pole Britt seal dilatation which may relate to a possible stenosis there is no obstructing mass or calculus. Stable left kidney 6 mm indeterminate solid versus cystic hyperdense intraparenchymal lesion, a follow-up CT abdomen/pelvis without contrast in 12 months could be obtained to re-evaluate. 2. There is some new short segment left mid to distal periureteral stranding which could relate to a recently passed calculus. There is an indeterminate midline 2 mm calculus along the distribution of the posterior urethra though this is stable compared to the prior 2016 exam and may represent a soft tissue phlebolith. 3. No acute abdominal/pelvic process. D/ / Evan Wright MD / Evan Wright MD Interpreting Provider: Evan Wright MD - EKG Data EKG attestation: Yes I reviewed and interpreted this EKG. EKG shows normal: sinus rhythm, axis, intervals, QRS complexes, ST-T waves Rate: normal (72) Interpretation: no acute changes, normal EKG
[2016-12-14 10:15] LABS: Bilirubin,Urine Negative (Negative); Blood,Urine Small (Negative); Clarity,Urine Clear (Clear); Color,Urine Yellow (Yellow); Glucose,Urine (UA) Normal (Normal); Ketones,Urine Negative (Negative); Leukocyte Esterase,Urine Negative (Negative); Nitrite,Urine Negative (Negative); PH,Urine 7.5 pH Units (5.0-8.0); Protein,Urine Negative (Neg-Trace); Specific Gravity,Urine 1.015 (1.010-1.025); Urobilinogen,Urine Normal (Normal)
[2016-12-14 10:30] LABS: Basophils % 0.2 %; Eosinophils # 0.1 K/mcL (0.0-0.6); Hematocrit 37.4 % (37.5-50.1); Hemoglobin 14.1 g/dL (12.9-16.9); Immature Granulocytes % 0.2 % (0-4); Lymphocytes # 2.5 K/mcL (0.6-4.6); Lymphocytes % 28.6 %; Mean Corpuscular Hemoglobin 31.3 pg (28.0-33.3); Mean Corpuscular Volume 82.9 fL (83.0-100.0); Monocytes # 0.7 K/mcL (0.0-1.3); Monocytes % 8.2 %; Neutrophils # 5.5 K/mcL (1.6-8.9); Platelet Count 238 K/mcL (140-400); Red Blood Count 4.51 M/mcL (4.19-5.50); Red Cell Distribution Width 12.8 % (11.5-14.5); Segmented Neutrophils % 61.8 %
[2016-12-14 10:38] LABS: Mean Corpuscular HGB Conc 37.7 g/dL (31.6-35.5)
[2016-12-14 10:40] LABS: INR 1.7
[2016-12-14 10:45] LABS: Squamous Epithelial Cell,Urine Few per lpf (None-Few)
[2016-12-14 10:46] LABS: Bacteria,Urine Few per hpf (None-Few); RBC,Urine 0-3 per hpf (0-3); WBC,Urine 0-3 per hpf (0-3)
[2016-12-14 10:52] LABS: Albumin 4.1 g/dL (3.5-5.0); Albumin/Globulin Ratio 1.2 (1.1-2.2); BUN/Creatinine Ratio 15 (6-26); Bilirubin,Direct 0.2 mg/dL (0.0-0.5); Bilirubin,Indirect 0.2 mg/dL (0.0-1.2); Bilirubin,Total 0.4 mg/dL (0.2-1.2); Blood Urea Nitrogen 13 mg/dL (8-26); Carbon Dioxide 22 mEq/L (19-29); Chloride 91 mEq/L (98-109); Globulin 3.4 g/dL (2.4-3.5); Glucose 100 mg/dL (70-99); Osmolality,Calculated 254 (280-300); Potassium 4.5 mEq/L (3.5-4.5); Sodium 122 mEq/L (136-145); Total Protein 7.5 g/dL (6.0-8.3); eGFR For African Americans > 60 (> 60); eGFR For Non-African Americans > 60 (> 60)
[2016-12-14] MEDS ORDERED: 0.9 % Sodium Chloride 1,000 ML IVC SCH (11:15)
[2016-12-14] MEDS ORDERED: Ondansetron 4 MG/2 ML VIAL IVP PRN (11:50)
[2016-12-14] MEDS ORDERED: MOM Conc 10 ML UD.LIQ PO PRN (11:50)
[2016-12-14] MEDS ORDERED: Nitroglycerin 0.4 MG TAB.SUBL SL PRN (11:50)
[2016-12-14] MEDS ORDERED: Naloxone 0.4 MG/ML INJ IVP PRN (11:50)
[2016-12-14] MEDS ORDERED: Acetaminophen 325 MG TABLET PO PRN (11:50)
--- NOTE | 2016-12-14 13:18 | Electrocardiograph Report ---
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
[2016-12-14] MEDS: 0.9 % Sodium Chloride 1,000 ML IVC SCH (14:21)
--- NOTE | 2016-12-14 14:50 | Internal Med History&Physical ---
Date of Encounter: 12/14/16 Time of Encounter: 14:20 Assessment and Plan (1) Weakness generalized Current visit: Yes Status: Acute Etiology not obvious. Give IV fluids and reassess in a.m. (2) Hyponatremia syndrome Current visit: Yes Status: Acute He has hyponatremia on most labs since January 2014. We will check urine sodium , urine osmole, and fractional excretion of sodium (3) Pulmonary embolism and infarction Current visit: No Status: Acute Continue Coumadin Internal Medicine - H&P: HPI Chief complaint: Weakness, hyponatremia Admitted From: Home Plans for Post Hospital Care: Home History of present illness: Mr. Peralta is a 76 year old male who came to emergency room stating he felt extreme weakness over the past 2-3 days. He had developed lower abdominal discomfort yesterday with urinary tenesmus. He slept poorly through the night and was drinking significant amounts of water. When he do not feel improved he came to emergency room and was evaluated. He was found to have sodium 122. He was admitted to [facility] floor for ongoing care needs. He was diagnosed with prostatitis at an office visit with his PCP approximately 10 days ago. He was prescribed Bactrim DS. He interrupted the treatment course after 3-4 days because of nausea but resumed after two-day hiatus and had no further nausea. He denies vomiting or diarrhea. He denies pain or dyspnea at the present time. He has not had URI symptoms. Past Med Surg Social Fam HX - Past Medical History Medical history: arthritis, CHF, coronary artery disease, DVT, GERD, hyperlipidemia, hypertension, myocardial infarction, peripheral artery disease, pulmonary embolus, seizures Psychiatric history: depression - Past Surgical History Surgical History: angioplasty/stent, appendectomy, cholecystectomy, knee replacement - Social History Smoking Status: Never smoker Smokeless Tobacco Status: No Alcohol use: none Drug use: none - Family History Mother Living Status: Hx Family Cardiac Disorders: Yes Hx Family Respiratory Disorders: No Hx Family Cancer: No Hx Family GI Disorders: No Hx Family Endocrine Disorder: No Hx Family Neuromuscular Disorders: No Hx Family Neurologic Disorders: No Hx Family HEENT Disorders: No Hx Family Autoimmune Disorders: No Internal Medicine - H&P: Meds Aspirin 81 mg PO DAILY 05/12/15 [History] Atorvastatin [Lipitor] 80 mg PO HS 05/12/15 [History] Carvedilol [Coreg] 6.25 mg PO BIDWM 05/12/15 [History] Lansoprazole [Prevacid] 30 mg PO DAILY 05/12/15 [History] Lisinopril [Zestril] 10 mg PO DAILY 05/12/15 [History] Phenytoin [Dilantin] 400 mg PO HS 05/12/15 [History] Cholecalciferol (D-3) [Vitamin D] 3,000 unit PO DAILY 07/19/16 [History] Fluticasone Propionate Nasal [Flonase] 2 spray NS BID 07/19/16 [History] Nitroglycerin [Nitrostat] 0.4 mg SL AD PRN 07/19/16 [History] Venlafaxine HCl [Venlafaxine HCl ER] 75 mg PO DAILY 07/19/16 [History] Omega3,5,6,7,9 No.1/[place] Oil [Complete [place] Softgel] 2 each PO QAM 08/14/16 [ History] Warfarin [Coumadin] 5 mg PO AD 10/29/16 [History] Meclizine [Antivert] 25 - 50 mg PO TID PRN 12/14/16 [History] Allergies morphine Allergy (Verified 10/29/16 18:14) Hives Penicillins [PCN] Allergy (Verified 10/29/16 18:14) Hives propoxyphene [From Darvon] Allergy (Verified 10/29/16 18:14) Hives All Systems PM: A 10-system review of systems was performed and is negative for pertinent findings except as documented above in the HPI. Review of systems: Review of systems from his August 2016 [facility] stay were reviewed and revised as below. Gen.: His weight has minimally changed from 86.182 kg at the June 2014 hospitalization to 85.5 kg at present. Cardiovascular: Has history of hypertension. He states he had an OH June 2010 with a single stent placed post OH. He had pulmonary embolism in 2011 and August 2016. He is now on lifelong Coumadin. He denies heart failure. Respiratory: He smoked from age [age] but denies chronic lung disease and does not wear home oxygen. GI: He has had cholecystectomy and has GERD but denies disorders of his liver or exocrine pancreas. : He has remote history of kidney stones. He denies other kidney or bladder disorders. Neurologic: He has history of seizure disorder with last seizure approximately 30 years ago. He denies large distribution strokes. Endocrine: He was diagnosed with DM 2 approximately 2004. He states it is diet- controlled. Hemoglobin A1c was 5.5% on 10/09/2016. He has hyperlipidemia but no known thyroid disease Hematology/oncology: Denies blood disorders or internal cancers. 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 - Constitutional Vitals: Temp Pulse Resp BP Pulse Ox 98.7 F 86 18 128/76 97 12/14/16 12:03 12/14/16 12:03 12/14/16 12:03 12/14/16 12:03 12/14/16 12:03 Exam: Gen.: He is a well-developed well-nourished male who appears in no severe distress at present time. HEENT: Head is atraumatic and normocephalic. Eyes: EOMI. There is no scleral icterus. Mouth: Mucosa is moist. Neck: Supple and nontender. There is no thyromegaly or adenopathy noted. Heart: Regular without murmurs gallops or ectopics Lungs: No wheezes or crackles are heard. Abdomen: Soft and nontender. No masses or guarding are noted. Extremities: There is no cyanosis edema or clubbing noted. Dorsalis pedis and posterior tibial pulses are trace palpable bilaterally. Neurologic: Mental status: He is talkative and a good historian. Cranial nerves : Smile is symmetric. Forehead wrinkles bilaterally. Tongue protrudes midline. EOMI. Motor: There is no pronator drift. Cerebellar: Finger to nose is intact bilaterally. Skin: Warm and dry Internal Med - H&P Results - Labs CBC & Chem 7: 12/14/16 10:10 12/14/16 10:10 - VTE Documentation of Mechanical Device: Graduated compression elastic hosiery
[2016-12-14] MEDS ORDERED: *HR* Warfarin 5 MG TABLET PO SCH (18:00)
[2016-12-14] MEDS: Fluticasone Propionate Nasal 50 MCG/SPRAY BOTTLE NS SCH (21:27)
[2016-12-15] MEDS: 0.9 % Sodium Chloride 1,000 ML IVC SCH (06:41)
[2016-12-15 07:04] VITALS: BP 159/74
[2016-12-15] MEDS: Fluticasone Propionate Nasal 50 MCG/SPRAY BOTTLE NS SCH (08:09)
[2016-12-15] MEDS ORDERED: Aspirin 81 MG TAB.CHEW PO SCH (09:00)
[2016-12-15] MEDS ORDERED: Cholecalciferol (D-3) 1,000 UNIT TABLET PO SCH (09:00)
[2016-12-15] MEDS ORDERED: Venlafaxine XR (24 HR) 37.5 MG CAP.ER.24H PO SCH (09:00)
[2016-12-15 09:29] LABS: BUN/Creatinine Ratio 15 (6-26); Blood Urea Nitrogen 12 mg/dL (8-26); Calcium 8.4 mg/dL (8.6-10.8); Carbon Dioxide 22 mEq/L (19-29); Chloride 103 mEq/L (98-109); Glucose 82 mg/dL (70-99); Osmolality,Calculated 271 (280-300); Potassium 4.6 mEq/L (3.5-4.5); Sodium 131 mEq/L (136-145); eGFR For African Americans > 60 (> 60); eGFR For Non-African Americans > 60 (> 60)
--- NOTE | 2016-12-15 10:15 | Discharge Summary ---
Date of Encounter: 12/15/16 Time of Encounter: 10:05 - Discharge Diagnosis (1) Weakness generalized Priority: Primary Status: Acute (2) Hyponatremia syndrome Priority: Secondary Status: Acute (3) Pulmonary embolism and infarction Priority: Secondary Status: Chronic - Discharge Medications Home Medications: Aspirin 81 mg PO DAILY 05/12/15 [History] Atorvastatin [Lipitor] 80 mg PO HS 05/12/15 [History] Carvedilol [Coreg] 6.25 mg PO BIDWM 05/12/15 [History] Lansoprazole [Prevacid] 30 mg PO DAILY 05/12/15 [History] Lisinopril [Zestril] 10 mg PO DAILY 05/12/15 [History] Phenytoin [Dilantin] 400 mg PO HS 05/12/15 [History] Cholecalciferol (D-3) [Vitamin D] 3,000 unit PO DAILY 07/19/16 [History] Fluticasone Propionate Nasal [Flonase] 2 spray NS BID 07/19/16 [History] Nitroglycerin [Nitrostat] 0.4 mg SL AD PRN 07/19/16 [History] Venlafaxine HCl [Venlafaxine HCl ER] 75 mg PO DAILY 07/19/16 [History] Omega3,5,6,7,9 No.1/[place] Oil [Complete [place] Softgel] 2 each PO QAM 08/14/16 [ History] Warfarin [Coumadin] 5 mg PO AD 10/29/16 [History] Meclizine [Antivert] 25 - 50 mg PO TID PRN 12/14/16 [History] Allergies/Adverse Reactions: Allergies morphine Allergy (Verified 10/29/16 18:14) Hives Penicillins [PCN] Allergy (Verified 10/29/16 18:14) Hives propoxyphene [From Darvon] Allergy (Verified 10/29/16 18:14) Hives Date of admission: 12/14/16 15:55 Primary care physician: Beto Guzman MD - Patient Status Disposition: Home, Self-Care Condition: Fair Functional capacity at discharge: independent ambulation Overall status at discharge: patient is progressing back to baseline - Discharge Instructions Follow Up With: Beto Guzman MD [Primary Care Provider] - 1 week - Diet and Activity Activity: resume usual activities as tolerated Diet: advance to your usual diet Hospital course: Mr. Peralta is a 76 year old male who came to emergency room stating he felt extreme weakness over the past 2-3 days. He had developed lower abdominal discomfort yesterday with urinary tenesmus. He slept poorly through the night and was drinking significant amounts of water. When he do not feel improved he came to emergency room and was evaluated. He was found to have sodium 122. He was admitted to [facility] floor for ongoing care needs. Initial orders were written by the emergency room physician. I saw him on December 14 and performed a history and physical. He was given IV fluids. Labs were ordered to evaluate for urine sodium, osmolality, and fractional excretion of sodium. The 24-hour urine collection was in progress beginning 8 AM the day of discharge will continue through 8 AM on December 16. His PCP can follow-up on these results. His sodium level lasha to 131 on the day of discharge. He felt improved in strength and stable for discharge home December 15. He will follow with his PCP Dr. Beto Guzman within one week. - Time Spent with Patient Total time spent providing and/or coordinating discharge services: - Constitutional Vitals: Temp Pulse Resp BP Pulse Ox 97.8 F 67 16 159/74 97 12/15/16 07:03 12/15/16 07:03 12/15/16 07:03 12/15/16 07:03 12/15/16 07:03 - VTE Documentation of Mechanical Device: Graduated compression elastic hosiery
[2016-12-15] MEDS ORDERED: *HR* Warfarin 5 MG TABLET PO SCH (18:00)
[2016-12-16 20:41] LABS: Creatinine 24 Hour,Urine 1.1 g/day (0.71-1.65); Creatinine,Urine 42 mg/dL; Protein/Creatinine Ratio,Urine 0.17 mg/mg (0-0.20); Total Volume 24 Hour,Urine 2.55 Liters (0.80-1.80)
[2016-12-16 20:42] LABS: Creatinine 24 Hour,Urine 1.07 g/day (0.71-1.65); Total Protein 24 Hour,Urine 178 mg/day (0-299); Total Volume 24 Hour,Urine 2.55 Liters (0.80-1.80)
== END 2016-12-15 12:13 | disposition home or self-care (01) | DRG 641 ==
LOC: EMEROOPIK 09:29 → INPPIK 09:29
PROVIDERS: ADMIT Internal Medicine; ATTEND Internal Medicine

== ENCOUNTER 2017-08-19 08:27 | Observation (INO) ==
[2017-08-19] MEDS ORDERED: Acetaminophen 325 MG TABLET PO ONE (08:43)
--- NOTE | 2017-08-19 08:43 | Emergency Department Note ---
Disposition Clinical Impression: Hyponatremia with normal extracellular fluid volume Disposition: Admitted As Inpatient Condition: Good Referrals: Beto Guzman MD [Primary Care Provider] - Forms: ED Satisfaction Letter Time of Disposition: 09:36 (Dr Arguelles) Weakness HPI - General Chief complaint: ED Upper Respiratory Infection Stated complaint: headache, congested Time Seen by Provider: 08/19/17 08:31 Source: patient Mode of arrival: EMS Limitations: no limitations Nursing Notes Reviewed: Yes Vital Signs Reviewed: Yes - History of Present Illness Pt Subjective Complaint: generalized weakness/fatigue Onset (ago): week(s) (2) Duration: gradually worsening Location: face Migration: none Pain Severity: none Pain Scale: 0 Improves with: none Worsens with: none Context: recent illness, other (77-year-old male presents to the ED secondary to worsening upper respiratory infection. He was seen by PCP over 2 weeks ago was noted to potentially have nonspecific viral infection and was given Tamiflu. He did not improve and was actually seen in the ED she was given antibiotic as well as upper respiratory infection symptomatic relief medications. Since that time the patient has had no improvement and actually worsening with his facial discomfort. The patient denies any associated fever or chills but does have increased upper airway secretions.) - Related Data Home Medications Medication Instructions Recorded Confirmed Aspirin 81 mg PO DAILY 05/12/15 08/15/17 Atorvastatin [Lipitor] 80 mg PO HS 05/12/15 08/15/17 Carvedilol [Coreg] 6.25 mg PO BIDWM 05/12/15 08/15/17 Lansoprazole [Prevacid] 30 mg PO DAILY 05/12/15 08/15/17 Lisinopril [Zestril] 10 mg PO DAILY 05/12/15 08/15/17 Phenytoin [Dilantin] 400 mg PO HS 05/12/15 08/15/17 Cholecalciferol (D-3) [Vitamin D] 3,000 unit PO DAILY 07/19/16 08/15/17 Fluticasone Propionate Nasal 2 spray NS BID 07/19/16 08/15/17 [Flonase] Nitroglycerin [Nitrostat] 0.4 mg SL AD PRN 07/19/16 08/15/17 Venlafaxine HCl [Venlafaxine HCl 75 mg PO DAILY 07/19/16 08/15/17 ER] Omega3,5,6,7,9 No.1/[place] Oil 2 each PO QAM 08/14/16 08/15/17 [Complete [place] Softgel] Warfarin [Coumadin] 5 mg PO SUTUTHSA 10/29/16 08/15/17 Meclizine [Antivert] 25 - 50 mg PO TID PRN 12/14/16 08/15/17 Finasteride [Proscar] 5 mg PO DAILY 03/18/17 08/15/17 Tamsulosin HCl [Flomax] 0.4 mg PO DAILY 03/18/17 08/15/17 Warfarin [Coumadin] 2.5 mg PO MOWEFR 03/18/17 08/15/17 Previous Rx's Medication Instructions Recorded Azithromycin [Azithromycin 6-Tab 250 mg PO PER PKG DI #6 tab 08/15/17 Pack] Brompheniramine/Pseudoephed/Dm 5 ml PO Q4-6H PRN #120 syrup 08/15/17 [Bromfed Dm Cough Syrup] Allergies Allergy/AdvReac Type Severity Reaction Status Date / Time morphine Allergy Hives Verified 10/29/16 18:14 Penicillins [PCN] Allergy Hives Verified 10/29/16 18:14 propoxyphene [From Darvon] Allergy Hives Verified 10/29/16 18:14 All systems ED: reviewed and negative except as stated. Past Medical History - Past Medical History Medical history: Reports: arthritis, CHF, coronary artery disease, DVT, GERD, hyperlipidemia, hypertension, myocardial infarction, peripheral artery disease, pulmonary embolus, seizures Surgical history: Reports: angioplasty/stent, appendectomy, cholecystectomy, knee replacement Psychiatric history: Reports: anxiety, depression - Social History Smoking Status: Never smoker Smokeless Tobacco Status: No Alcohol use: Reports: none Drug use: Reports: none Physical Exam - General Limitations: no limitations General appearance: alert, in distress - Head Head exam: atraumatic, normocephalic - Eye Eye exam: Present: normal appearance, PERRL, EOMI. Absent: scleral icterus, conjunctival injection, nystagmus - ENT ENT exam: normal oropharynx, mucous membranes dry - Expanded ENT Exam External ear exam: Present: external tenderness Nose exam: sinus tenderness. negative: rhinorrhea, crepitus Mouth exam: Present: normal external inspection Throat exam: Present: normal inspection - Neck Neck exam: Present: normal inspection, full ROM, trachea midline. Absent: lymphadenopathy - Chest Chest inspection: Present: normal inspection, symmetric chest wall rise - Respiratory Respiratory exam: Present: normal lung sounds bilaterally, other. Absent: wheezes, stridor, accessory muscle use, prolonged expiratory phase - Cardiovascular Cardiovascular exam: Present: regular rate, normal rhythm, normal heart sounds - Abdominal Exam Abdominal exam: Present: soft, Non-Tender, normal bowel sounds - Extremities Exam Extremities exam: Present: normal inspection, full ROM. Absent: tenderness, pedal edema - Back Exam Back exam: Present: normal inspection, full ROM. Absent: tenderness - Neurological Exam Neurological exam: Present: alert, oriented X3 - Skin Skin exam: Present: warm, dry, intact, normal color Course Vital Signs Temperature 97.8 F 08/19/17 08:35 Pulse Rate 64 08/19/17 08:35 Respiratory Rate 16 08/19/17 08:35 Blood Pressure 149/61 08/19/17 08:35 O2 Sat by Pulse Oximetry 98 08/19/17 08:35 Temperature 97.8 F 08/19/17 08:35 Pulse Rate 64 08/19/17 08:52 Respiratory Rate 14 08/19/17 08:52 Blood Pressure 161/77 08/19/17 08:52 O2 Sat by Pulse Oximetry 98 08/19/17 08:52 Oxygen Delivery Oxygen Delivery Room Air Weakness - MDM Narrative Medical decision making narrative: Hemodynamically stable. The patient has hyponatremia which could be contributing to his current signs and symptoms of weakness as well as headache. Diagnostic and laboratory results were discussed with the patient and is amenable for inpatient admission and evaluation. I discussed with the hospitalist about the patient's case and will admit for further treatment of the hyponatremia. - Differential Diagnosis Differential Diagnosis: Likely: anemia, hypoglycemia, dehydration, medication effect, metabolic - Medical Records Medical records reviewed: Yes I reviewed the patient's medical records. - Lab Data Lab results reviewed: Yes I reviewed the patient's lab results. Result diagrams: 08/19/17 08:54 08/19/17 08:54 Lab Results 08/19/17 08/19/17 08/19/17 Range/Units 08:54 08:54 08:54 WBC 8.2 (4.3-11.1) K/mcL RBC 4.35 (4.19-5.50) M/mcL Hgb 13.3 (12.9-16.9) g/dL Hct 36.9 L (37.5-50.1) % MCV 84.8 (83.0-100.0) fL MCH 30.6 (28.0-33.3) pg MCHC 36.0 H (31.6-35.5) g/dL RDW 12.6 (11.5-14.5) % Plt Count 262 (140-400) K/mcL MPV 9.1 L (9.4-12.4) fL Immature Gran % 0.2 (0-4) % Seg Neutrophils % 60.8 % Lymphocytes % 27.6 % Monocytes % 9.4 % Eosinophils % 1.8 % Basophils % 0.2 % Neutrophils # 5.0 (1.6-8.9) K/mcL Lymphocytes # 2.3 (0.6-4.6) K/mcL Monocytes # 0.8 (0.0-1.3) K/mcL Eosinophils # 0.2 (0.0-0.6) K/mcL Basophils # 0.0 (0.0-0.2) K/mcL PT 24.5 H (9.4-12.1) Seconds INR 2.2 Sodium 121 L (136-145) mEq/L Potassium 4.9 (3.5-5.1) mEq/L Chloride 89 L (98-107) mEq/L Carbon Dioxide 26 (23-29) mEq/L BUN 11 (8-23) mg/dL Creatinine 1.03 (0.70-1.30) mg/dL Est GFR ( Amer) > 60 (> 60) Est GFR (Non-Af Amer) > 60 (> 60) BUN/Creatinine Ratio 11 (6-26) Glucose 96 (70-105) mg/dL Calculated Osmolality 251 L (280-300) Calcium 9.4 (8.6-10.3) mg/dL Magnesium 1.7 (1.6-2.6) mg/dL Total Bilirubin 0.8 (0.3-1.0) mg/dL AST 25 (13-39) Units/L ALT 29 (7-52) Units/L Alkaline Phosphatase 48 (34-104) Units/L Serum Total Protein 7.2 (6.4-8.9) g/dL Albumin 4.1 (3.5-5.7) g/dL Globulin 3.1 (2.4-3.5) g/dL Albumin/Globulin Ratio 1.3 (1.1-2.2) - Radiology Data Radiology results reviewed: Yes I reviewed the patient's radiology results. Chest X-Ray 08/19/17 08:43 IMPRESSION: No acute cardiopulmonary process identified. D/ / Meir James MD / Meir James MD Interpreting Provider: Meir James MD Head CT 08/19/17 08:44 IMPRESSION: No acute intracranial abnormality. Incidental acute and chronic sinus disease particularly involving the right maxillary sinus D/ / Josué Crouch MD / Josué Crouch MD Interpreting Provider: Josué Crouch MD - EKG Data Rate: normal Rhythm: NSR, other (First degree AV block) [place]/QRS: normal Interpretation: normal EKG, nonspecific ST-T wave changes
[2017-08-19 09:02] LABS: Basophils % 0.2 %; Eosinophils # 0.2 K/mcL (0.0-0.6); Eosinophils % 1.8 %; Hematocrit 36.9 % (37.5-50.1); Hemoglobin 13.3 g/dL (12.9-16.9); Immature Granulocytes % 0.2 % (0-4); Lymphocytes # 2.3 K/mcL (0.6-4.6); Lymphocytes % 27.6 %; Mean Corpuscular Hemoglobin 30.6 pg (28.0-33.3); Mean Corpuscular Volume 84.8 fL (83.0-100.0); Mean Platelet Volume 9.1 fL (9.4-12.4); Monocytes # 0.8 K/mcL (0.0-1.3); Monocytes % 9.4 %; Platelet Count 262 K/mcL (140-400); Red Blood Count 4.35 M/mcL (4.19-5.50); Red Cell Distribution Width 12.6 % (11.5-14.5); Segmented Neutrophils % 60.8 %
[2017-08-19 09:09] LABS: INR 2.2; Prothrombin Time 24.5 Seconds (9.4-12.1)
[2017-08-19 09:18] LABS: Alanine Aminotransferase 29 Units/L (7-52); Albumin 4.1 g/dL (3.5-5.7); Albumin/Globulin Ratio 1.3 (1.1-2.2); Alkaline Phosphatase 48 Units/L (34-104); Aspartate Amino Transferase 25 Units/L (13-39); BUN/Creatinine Ratio 11 (6-26); Bilirubin,Total 0.8 mg/dL (0.3-1.0); Blood Urea Nitrogen 11 mg/dL (8-23); Calcium 9.4 mg/dL (8.6-10.3); Carbon Dioxide 26 mEq/L (23-29); Chloride 89 mEq/L (98-107); Globulin 3.1 g/dL (2.4-3.5); Glucose 96 mg/dL (70-105); Magnesium 1.7 mg/dL (1.6-2.6); Osmolality,Calculated 251 (280-300); Potassium 4.9 mEq/L (3.5-5.1); Sodium 121 mEq/L (136-145); Total Protein 7.2 g/dL (6.4-8.9); eGFR For African Americans > 60 (> 60); eGFR For Non-African Americans > 60 (> 60)
[2017-08-19] MEDS ORDERED: 0.9 % Sodium Chloride 1,000 ML IVC SCH (09:45)
[2017-08-19] MEDS ORDERED: *HR* OxyCODONE Immed Rel 5 MG TABLET PO PRN (11:23)
[2017-08-19] MEDS ORDERED: Ondansetron 4 MG/2 ML VIAL IVP PRN (11:23)
[2017-08-19] MEDS ORDERED: *HR* HYDROcodone/Acet 5/325 mg TABLET PO PRN (11:23)
[2017-08-19] MEDS ORDERED: Nitroglycerin 0.4 MG TAB.SUBL SL PRN (11:23)
[2017-08-19] MEDS ORDERED: Azithromycin 250 MG TABLET PO SCH (11:23)
[2017-08-19] MEDS ORDERED: Acetaminophen 325 MG TABLET PO PRN (11:23)
[2017-08-19] MEDS ORDERED: Naloxone 0.4 MG/ML INJ IVP PRN (11:23)
[2017-08-19] MEDS: 0.9 % Sodium Chloride 1,000 ML IVC SCH (12:04)
--- NOTE | 2017-08-19 12:48 | Internal Med History&Physical ---
Date of Encounter: 08/19/17 Time of Encounter: 12:20 Assessment and Plan (1) Upper respiratory infection Current visit: No Status: Acute We will give Levaquin with lactobacillus. 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 We will order urine to evaluate specific gravity do further workup as needed. Continue normal saline IV. (3) Weakness generalized Current visit: No Status: Acute Continue IV fluids Internal Medicine - H&P: HPI Chief complaint: URI, hyponatremia Admitted From: Emergency Dept Plans for Post Hospital Care: Home History of present illness: Mr. Peralta is a 77 year old male who came to emergency room stating he had not improved after receiving treatment for URI at [facility] emergency room 08/15/2017. He had received a Z-Ramesh and Bromfed-DM cough syrup. He reports taking only one day of cough syrup because he felt it caused insomnia. He was evaluated in emergency room and found to have hyponatremia with sodium 121. He complained of weakness. He was admitted to [facility] floor for ongoing care needs. He reports yellow nasal discharge. He has had minimal cough with little productivity. He has a sensation of head fullness. He has had nausea but no vomiting or diarrhea. Reports his had URI infection symptoms 1 week ago. Past Med Surg Social Fam HX - Past Medical History Medical history: arthritis, CHF, coronary artery disease, DVT, GERD, hyperlipidemia, hypertension, myocardial infarction, peripheral artery disease, pulmonary embolus, seizures Psychiatric history: anxiety, depression - Past Surgical History Surgical History: angioplasty/stent, appendectomy, cholecystectomy, knee replacement - Social History Smoking Status: Never smoker Smokeless Tobacco Status: No Alcohol use: none Drug use: none - Family History Father Living Status: Hx Family Cardiac Disorders: Yes Mother Living Status: Hx Family Cardiac Disorders: Yes Hx Family Respiratory Disorders: No Hx Family Cancer: No Hx Family GI Disorders: No Hx Family Endocrine Disorder: No Hx Family Neuromuscular Disorders: No Hx Family Neurologic Disorders: No Hx Family HEENT Disorders: No Hx Family Autoimmune Disorders: No Internal Medicine - H&P: Meds Aspirin 81 mg PO DAILY 05/12/15 [History] Atorvastatin [Lipitor] 80 mg PO HS 05/12/15 [History] Carvedilol [Coreg] 6.25 mg PO BIDWM 05/12/15 [History] Lansoprazole [Prevacid] 30 mg PO DAILY 05/12/15 [History] Lisinopril [Zestril] 10 mg PO DAILY 05/12/15 [History] Phenytoin [Dilantin] 400 mg PO HS 05/12/15 [History] Cholecalciferol (D-3) [Vitamin D] 3,000 unit PO DAILY 07/19/16 [History] Fluticasone Propionate Nasal [Flonase] 2 spray NS BID 07/19/16 [History] Nitroglycerin [Nitrostat] 0.4 mg SL AD PRN 07/19/16 [History] Venlafaxine HCl [Venlafaxine HCl ER] 75 mg PO DAILY 07/19/16 [History] Omega3,5,6,7,9 No.1/[place] Oil [Complete [place] Softgel] 2 each PO QAM 08/14/16 [ History] Warfarin [Coumadin] 5 mg PO 5XW 10/29/16 [History] Meclizine [Antivert] 25 - 50 mg PO TID PRN 12/14/16 [History] Finasteride [Proscar] 5 mg PO DAILY 03/18/17 [History] Warfarin [Coumadin] 2.5 mg PO 2XW 03/18/17 [History] Azithromycin [Azithromycin 6-Tab Pack] 250 mg PO PER PKG DI #6 tab 08/15/17 [Rx] Brompheniramine/Pseudoephed/Dm [Bromfed Dm Cough Syrup] 5 ml PO Q4-6H PRN #120 syrup 08/15/17 [Rx] 3 Allergy/AdvReac Type Severity Reaction Status Date / Time morphine Allergy Hives Verified 10/29/16 18:14 Penicillins [PCN] Allergy Hives Verified 10/29/16 18:14 propoxyphene [From Darvon] Allergy Hives Verified 10/29/16 18:14 All Systems PM: A 10-system review of systems was performed and is negative for pertinent findings except as documented above in the HPI. Review of systems: Review of systems from his December 2016 [facility] hospitalization were reviewed and revised as below. Gen.: His weight minimally changed from 86.182 kg at the June 2014 hospitalization to 85.5 kg at the December 2016 hospitalization. Recorded weight today of 49.895 kg appears inaccurate. Cardiovascular: Has history of hypertension. He states he had an NE June 2010 with a single stent placed post NE. He had pulmonary embolism in 2011 and August 2016. He is now on lifelong Coumadin. He denies heart failure. Respiratory: He smoked from age [age] but denies chronic lung disease and does not wear home oxygen. GI: He has had cholecystectomy and has GERD but denies disorders of his liver or exocrine pancreas. : He has remote history of kidney stones. He denies other kidney or bladder disorders. Neurologic: He has history of seizure disorder with last seizure approximately 30 years ago. He denies large distribution strokes. Endocrine: He was diagnosed with DM 2 approximately 2004. He states it is diet- controlled. Hemoglobin A1c was 5.5% on 10/09/2016. He has hyperlipidemia but no known thyroid disease Hematology/oncology: Denies blood disorders or internal cancers. 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 - Constitutional Vitals: Temp Pulse Resp BP Pulse Ox 97.8 F 62 16 137/76 98 08/19/17 08:35 08/19/17 09:45 08/19/17 09:45 08/19/17 09:45 08/19/17 09:45 Exam: Gen.: He is a well-developed well-nourished male lying in bed who appears in mild discomfort. HEENT: Head is atraumatic and normocephalic. Eyes: EOMI. There is no scleral icterus. Mouth: Mucosa is moist. Neck: Supple and nontender. There is no thyromegaly or adenopathy noted. Heart: Regular without murmurs gallops or ectopics Lungs: No wheezes crackles or egophony are heard Back: Straight without flank tenderness presacral edema Abdomen: Soft and nontender. No masses or guarding are noted. Extremities: There is no cyanosis edema or clubbing noted. Dorsalis pedis and posttibial pulses are 1-2 over 2 bilaterally. Neurologic: Mental status: He is talkative and a good historian. Cranial nerves : Smile is symmetric. Forehead wrinkles bilaterally. Tongue protrudes midline. EOMI. Motor: There is no pronator drift. Cerebellar: Finger to nose is intact bilaterally. Skin: Warm and dry Internal Med - H&P Results - Labs CBC & Chem 7: 08/19/17 08:54 08/19/17 08:54
[2017-08-19] MEDS ORDERED: Levofloxacin 750 MG/150 ML 750 MG/150 ML BAG IVPB SCH (13:00)
[2017-08-19 17:48] LABS: Bilirubin,Urine Negative (Negative); Blood,Urine Small (Negative); Clarity,Urine Clear (Clear); Glucose,Urine (UA) Normal (Normal); Ketones,Urine Negative (Negative); Leukocyte Esterase,Urine Negative (Negative); Nitrite,Urine Negative (Negative); Protein,Urine Negative (Neg-Trace); Urobilinogen,Urine Normal (Normal)
[2017-08-19 17:54] LABS: Color,Urine Light Yellow (Yellow)
[2017-08-19] MEDS ORDERED: *HR* Warfarin 5 MG TABLET PO SCH (18:00)
[2017-08-19] MEDS: Lactobacillus 1 EACH CAP.SPRINK PO SCH (20:04)
[2017-08-19] MEDS ORDERED: Fluticasone Propionate Nasal 50 MCG/SPRAY BOTTLE NS SCH (21:00)
[2017-08-19] MEDS: Fluticasone Propionate Nasal 50 MCG/SPRAY BOTTLE NS SCH (21:43)
[2017-08-20] MEDS: 0.9 % Sodium Chloride 1,000 ML IVC SCH (01:42)
[2017-08-20 06:00] LABS: Basophils % 0.2 %; Eosinophils # 0.1 K/mcL (0.0-0.6); Hematocrit 36.9 % (37.5-50.1); Hemoglobin 13.3 g/dL (12.9-16.9); Immature Granulocytes % 0.3 % (0-4); Lymphocytes # 2.2 K/mcL (0.6-4.6); Lymphocytes % 25.3 %; Mean Corpuscular Hemoglobin 30.9 pg (28.0-33.3); Mean Corpuscular Volume 85.8 fL (83.0-100.0); Mean Platelet Volume 9.4 fL (9.4-12.4); Monocytes # 0.9 K/mcL (0.0-1.3); Monocytes % 10.6 %; Neutrophils # 5.5 K/mcL (1.6-8.9); Platelet Count 269 K/mcL (140-400); Red Cell Distribution Width 13.2 % (11.5-14.5); Segmented Neutrophils % 62.6 %
[2017-08-20 06:19] LABS: BUN/Creatinine Ratio 13 (6-26); Blood Urea Nitrogen 13 mg/dL (8-23); Calcium 9.2 mg/dL (8.6-10.3); Carbon Dioxide 27 mEq/L (23-29); Chloride 96 mEq/L (98-107); Glucose 100 mg/dL (70-105); Osmolality,Calculated 266 (280-300); Potassium 4.7 mEq/L (3.5-5.1); Sodium 128 mEq/L (136-145); eGFR For African Americans > 60 (> 60); eGFR For Non-African Americans > 60 (> 60)
[2017-08-20] MEDS: Lactobacillus 1 EACH CAP.SPRINK PO SCH (08:09)
[2017-08-20] MEDS: Fluticasone Propionate Nasal 50 MCG/SPRAY BOTTLE NS SCH (08:10)
[2017-08-20] MEDS ORDERED: Finasteride 5 MG TABLET PO SCH (09:00)
[2017-08-20] MEDS ORDERED: Aspirin 81 MG TAB.CHEW PO SCH (09:00)
[2017-08-20] MEDS ORDERED: [UNRECOGNIZED DRUG - REMARK] PO SCH (09:00)
[2017-08-20] MEDS ORDERED: Venlafaxine XR (24 HR) 37.5 MG CAP.ER.24H PO SCH (09:00)
[2017-08-20] MEDS ORDERED: Cholecalciferol (D-3) 1,000 UNIT TABLET PO SCH (09:00)
--- NOTE | 2017-08-20 10:25 | Discharge Summary ---
Date of Encounter: 08/20/17 Time of Encounter: 10:18 - Discharge Diagnosis (1) Upper respiratory infection Priority: Primary Status: Acute Qualifiers: URI type: unspecified URI Qualified Code(s): J06.9 - Acute upper respiratory infection, unspecified (2) Hyponatremia syndrome Priority: Secondary Status: Acute (3) Weakness generalized Priority: Secondary Status: Acute Hospital course: Mr. Peralta is a 77 year old male who came to emergency room stating he had not improved after receiving treatment for URI at [facility] emergency room 08/15/2017. He had received a Z-Ramesh and Bromfed-DM cough syrup. He reports taking only one day of cough syrup because he felt it caused insomnia. He was evaluated in emergency room and found to have hyponatremia with sodium 121. He complained of weakness. He was admitted to [facility] floor for ongoing care needs. Initial orders were written by the emergency room physician. I saw him on August 19 and performed the history and physical. He was started on IV Levaquin and lactobacillus. He remained afebrile. WBC the following day remained normal with no left shift seen. He felt he was stable for discharge home. He will continue with oral antibiotic and probiotic for 5 additional days. He was given IV normal saline. Sodium increased to 128 by the following day. His PCP can monitor this. He will be discharged home and follow with Dr. Beto Guzman within 1 week. - Time Spent with Patient Total time spent providing and/or coordinating discharge services: - Discharge Medications Prescriptions: Lactobacillus [Culturelle] 1 each PO BID #10 brittany levoFLOXacin [Levaquin] 500 mg PO DAILY #5 tablet Home Medications: Aspirin 81 mg PO DAILY 05/12/15 [History] Atorvastatin [Lipitor] 80 mg PO HS 05/12/15 [History] Carvedilol [Coreg] 6.25 mg PO BIDWM 05/12/15 [History] Lansoprazole [Prevacid] 30 mg PO DAILY 05/12/15 [History] Lisinopril [Zestril] 10 mg PO DAILY 05/12/15 [History] Phenytoin [Dilantin] 400 mg PO HS 05/12/15 [History] Cholecalciferol (D-3) [Vitamin D] 3,000 unit PO DAILY 07/19/16 [History] Fluticasone Propionate Nasal [Flonase] 2 spray NS BID 07/19/16 [History] Nitroglycerin [Nitrostat] 0.4 mg SL AD PRN 07/19/16 [History] Venlafaxine HCl [Venlafaxine HCl ER] 75 mg PO DAILY 07/19/16 [History] Omega3,5,6,7,9 No.1/[place] Oil [Complete [place] Softgel] 2 each PO QAM 08/14/16 [ History] Warfarin [Coumadin] 5 mg PO 5XW 10/29/16 [History] Meclizine [Antivert] 25 - 50 mg PO TID PRN 12/14/16 [History] Finasteride [Proscar] 5 mg PO DAILY 03/18/17 [History] Warfarin [Coumadin] 2.5 mg PO 2XW 03/18/17 [History] Brompheniramine/Pseudoephed/Dm [Bromfed Dm Cough Syrup] 5 ml PO Q4-6H PRN #120 syrup 08/15/17 [Rx] Lactobacillus [Culturelle] 1 each PO BID #10 cap.sprink 08/20/17 [Rx] levoFLOXacin [Levaquin] 500 mg PO DAILY #5 tablet 08/20/17 [Rx] Allergies/Adverse Reactions: 3 Allergy/AdvReac Type Severity Reaction Status Date / Time morphine Allergy Hives Verified 10/29/16 18:14 Penicillins [PCN] Allergy Hives Verified 10/29/16 18:14 propoxyphene [From Darvon] Allergy Hives Verified 10/29/16 18:14 Date of admission: 08/19/17 09:57 Primary care physician: Beto Guzman MD - Constitutional Vitals: Temp Pulse Resp BP Pulse Ox 98.1 F 72 16 141/71 96 08/20/17 06:53 08/20/17 06:53 08/20/17 06:53 08/20/17 06:53 08/20/17 06:53 - Patient Status Disposition: Home, Self-Care Condition: Good Functional capacity at discharge: independent ambulation Overall status at discharge: patient is progressing back to baseline - Discharge Instructions Follow Up With: Beto Guzman MD [Primary Care Provider] - 1 week - Diet and Activity Activity: resume usual activities as tolerated Diet: advance to your usual diet - VTE Documentation of Mechanical Device: Graduated compression elastic hosiery
[2017-08-20 11:02] VITALS: BP 133/72
[2017-08-20] MEDS ORDERED: *HR* Warfarin 5 MG TABLET PO SCH (18:00)
--- NOTE | 2017-08-20 19:57 | Electrocardiograph Report ---
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
[2017-08-21] MEDS ORDERED: Levofloxacin 750 MG/150 ML 750 MG/150 ML BAG IVPB SCH (13:00)
== END 2017-08-20 11:35 | disposition home or self-care (01) ==
LOC: INPPIK 08:27 → EMEROOPIK 08:27 → INPPIK 10:15
PROVIDERS: ADMIT Internal Medicine; ATTEND Internal Medicine

== ENCOUNTER 2018-05-20 08:28 | Observation (INO) ==
[2018-05-20] MEDS ORDERED: Nitroglycerin 1 INCH/GM PACKET TP ONE (08:33)
[2018-05-20 08:54] LABS: Basophils % 0.4 %; Eosinophils # 0.1 K/mcL (0.0-0.6); Eosinophils % 0.9 %; Hematocrit 38.2 % (37.5-50.1); Immature Granulocytes % 0.4 % (0-4); Lymphocytes # 2.4 K/mcL (0.6-4.6); Lymphocytes % 29.8 %; Mean Corpuscular HGB Conc 36.6 g/dL (31.6-35.5); Mean Corpuscular Volume 84.5 fL (83.0-100.0); Monocytes # 0.7 K/mcL (0.0-1.3); Monocytes % 9.3 %; Neutrophils # 4.7 K/mcL (1.6-8.9); Platelet Count 271 K/mcL (140-400); Red Blood Count 4.52 M/mcL (4.19-5.50); Red Cell Distribution Width 12.4 % (11.5-14.5); Segmented Neutrophils % 59.2 %
--- NOTE | 2018-05-20 08:58 | Emergency Department Note ---
Disposition Clinical Impression: Hyponatremia Chest pain Qualifiers: Chest pain type: precordial pain Qualified Code(s): R07.2 - Precordial pain Disposition: Admitted As Inpatient Condition: Fair Referrals: NONE,PCP [Non-Partnered Physician] - Forms: ED Satisfaction Letter Chest Pain HPI - General Chief Complaint: ED Chest Pain Stated Complaint: Chest pain Time Seen by Provider: 05/20/18 08:33 Source: patient, EMS Mode of arrival: EMS Limitations: no limitations Vital Signs Reviewed: Yes Nursing Notes Reviewed: Yes - History of Present Illness HPI Narrative: Patient relates he has had a history of bronchitis for which she is family doctor 2-3 times in last 2 weeks. He continues with a cough productive some clear phlegm. He also has had intermittent chest tightness and pressure that was much worse this morning. He states this made him feel like he could pass out. He has taken some nitroglycerin with some relief of discomfort and he has received aspirin by EMS. He reports of feeling shortness of breath but no diaphoresis, nausea or radiation of discomfort. He denies fevers but has some chills. Denies back or abdominal pains. Denies a culture be swelling, immo bilization or injury. He denies any ill exposures. At time of presentation here he states he feels "just wiped out" and he feels tight with his breathing. EMS did establish an IV and obtained a twelve-lead EKG at 7:49 AM. This EKG has a normal sinus rhythm with a rate of 28, axis of 48, NJ interval 152 and a QT/QTC of 380/394. There are no ST or T-wave changes to suggest ischemia or infarction. This is on my interpretation. Pt complaint: chest pain Onset (ago): week(s) Duration: intermittent, gradually worsening Onset: during rest Pain Location: substernal Severity: moderate Quality: heaviness Pain Radiation: none Improves with: nitroglycerin Worsens with: inspiration Context: history of DVT/PE Associated symptoms: Reports: dyspnea. Denies: nausea, vomiting, diaphoresis, syncope, palpitations, fever, cough, leg swelling Treatments prior to arrival chest pain: aspirin, nitroglycerin - Related Data Home Medications Medication Instructions Recorded Confirmed Aspirin 81 mg PO DAILY 05/12/15 05/20/18 Atorvastatin [Lipitor] 80 mg PO HS 05/12/15 05/20/18 Carvedilol [Coreg] 6.25 mg PO BIDWM 05/12/15 05/20/18 Lansoprazole [Prevacid] 30 mg PO DAILY 05/12/15 05/20/18 Lisinopril [Zestril] 10 mg PO DAILY 05/12/15 05/20/18 Cholecalciferol (D-3) [Vitamin D] 3,000 unit PO DAILY 07/19/16 05/20/18 Fluticasone Propionate Nasal 2 spray NS BID 07/19/16 05/20/18 [Flonase] Omega3,5,6,7,9 No.1/[place] Oil 2 each PO QAM 08/14/16 05/20/18 [Complete [place] Softgel] Buspirone HCl [Buspar] 7.5 mg PO BID 11/30/17 05/20/18 Warfarin [Coumadin] 2.5 mg PO DAILY 01/02/18 05/20/18 Warfarin [Coumadin] 5 mg PO DAILY 01/02/18 05/20/18 Previous Rx's Medication Instructions Recorded Lactobacillus [Culturelle] 1 each PO BID #10 cap.sprink 08/20/17 Nitroglycerin [Nitrostat] 0.4 mg SL Q5M PRN #1 vial 12/01/17 Allergies Allergy/AdvReac Type Severity Reaction Status Date / Time morphine Allergy Hives Verified 01/02/18 23:09 Penicillins [PCN] Allergy Hives Verified 01/02/18 23:09 propoxyphene [From Darvon] Allergy Hives Verified 01/02/18 23:09 All systems ED: reviewed and negative except as stated. Chest Pain PMH - Past Medical History Medical history: Reports: arthritis, CHF, coronary artery disease, DVT, GERD, hyperlipidemia, hypertension, myocardial infarction, peripheral artery disease, pulmonary embolus, seizures Surgical history: Reports: angioplasty/stent, appendectomy, cholecystectomy, knee replacement Psychiatric history: Reports: anxiety, depression - Social History Smoking Status: Never smoker Alcohol use: Reports: none Drug use: Reports: none Physical Exam - General Limitations: no limitations General appearance: alert, in no apparent distress, anxious - Head Head exam: atraumatic, normocephalic, normal inspection - Eye Eye exam: Present: normal appearance, PERRL, EOMI. Absent: conjunctival injection - ENT ENT exam: normal exam, normal oropharynx, mucous membranes moist - Neck Neck exam: Present: normal inspection, full ROM, trachea midline - Chest Chest inspection: Present: normal inspection, symmetric chest wall rise - Respiratory Respiratory exam: Present: normal lung sounds bilaterally. Absent: respiratory distress, wheezes, prolonged expiratory phase - Cardiovascular Cardiovascular exam: Present: regular rate, normal rhythm, normal heart sounds. Absent: tachycardia, JVD - Abdominal Exam Abdominal exam: Present: soft, Non-Tender, normal bowel sounds. Absent: tenderness, distention, guarding, rebound, rigidity - Extremities Exam Extremities exam: Present: normal inspection, full ROM, normal capillary refill. Absent: tenderness, pedal edema, calf tenderness - Expanded Lower Extremity Exam Neurovascular/Tendon exam: Present: normal capillary refill. Absent: motor deficit, sensory deficit, tendon deficit Gait: not tested/not observed - Back Exam Back exam: Present: normal inspection, full ROM. Absent: tenderness - Neurological Exam Neurological exam: Present: alert, oriented X3 - Psychiatric Psychiatric exam: Present: normal affect, normal mood, anxious - Skin Skin exam: Present: warm, dry, intact, normal color. Absent: rash, diaphoresis, pallor Course Course Narrative: 0940: All testing has been discussed with the family and with Dr. Arguelles. Patient is oxygenating well without tachycardia or significant tachypnea. He is therapeutic on his anticoagulation. This will put him very low probability for pulmonary embolism. Dr. Arguelles agreed and observation without obtaining CT PE study. When I discussed this with the family they advised that 3 years ago she had similar presentation and after [address] was performed demonstrating multiple pulmonary emboli. They seem concerned going without a more definitive study and a page has been placed to Dr. Arguelles again prior to his observation to the hospital for his chest pain. 0950: I discussed the patient's presentation and family concerns with Dr. Arguelles. He is agreeable with obtaining the CT PE study prior to the patient going to the inpatient floor. This has been ordered and is pending. 1105: CT PE study is negative. Verbal orders have been obtained for the patient's admission. We are waiting for bed placement prior to taking the patient to the floor. Vital Signs O2 Sat by Pulse Oximetry 99 05/20/18 08:29 Temperature 98 F 05/20/18 08:30 Pulse Rate 62 05/20/18 10:42 Respiratory Rate 20 05/20/18 10:42 Blood Pressure 140/68 05/20/18 10:42 O2 Sat by Pulse Oximetry 100 05/20/18 10:42 Oxygen Delivery Oxygen Delivery Nasal Cannula Chest Pain - Differential Diagnosis Likely: atypical chest pain, costalchondritis, chest pain - Medical Records Medical records reviewed: Yes I reviewed the patient's medical records. - Lab Data Lab results reviewed: Yes I reviewed the patient's lab results. Result diagrams: 05/20/18 08:46 05/20/18 08:46 Lab Results 05/20/18 05/20/18 05/20/18 Range/Units 08:46 08:46 08:46 WBC 8.0 (4.3-11.1) K/mcL RBC 4.52 (4.19-5.50) M/mcL Hgb 14.0 (12.9-16.9) g/dL Hct 38.2 (37.5-50.1) % MCV 84.5 (83.0-100.0) fL MCH 31.0 (28.0-33.3) pg MCHC 36.6 H (31.6-35.5) g/dL RDW 12.4 (11.5-14.5) % Plt Count 271 (140-400) K/mcL MPV 9.0 L (9.4-12.4) fL Immature Gran % 0.4 (0-4) % Seg Neutrophils % 59.2 % Lymphocytes % 29.8 % Monocytes % 9.3 % Eosinophils % 0.9 % Basophils % 0.4 % Neutrophils # 4.7 (1.6-8.9) K/mcL Lymphocytes # 2.4 (0.6-4.6) K/mcL Monocytes # 0.7 (0.0-1.3) K/mcL Eosinophils # 0.1 (0.0-0.6) K/mcL Basophils # 0.0 (0.0-0.2) K/mcL PT 22.3 H (9.4-12.1) Seconds INR 2.0 APTT 36.3 H (26.0-36.0) Seconds D-Dimer (0-500) ng/mLFEU Sodium 126 L (136-145) mEq/L Potassium 4.6 (3.5-5.1) mEq/L Chloride 94 L (98-107) mEq/L Carbon Dioxide 25 (23-29) mEq/L BUN 11 (8-23) mg/dL Creatinine 1.16 (0.70-1.30) mg/dL Est GFR ( Amer) > 60 (> 60) Est GFR (Non-Af Amer) > 60 (> 60) BUN/Creatinine Ratio 9 (6-26) Glucose 106 H (70-105) mg/dL Calculated Osmolality 262 L (280-300) Calcium 9.5 (8.6-10.3) mg/dL Troponin I < 0.03 (< 0.04) ng/mL 05/20/18 Range/Units 08:46 WBC (4.3-11.1) K/mcL RBC (4.19-5.50) M/mcL Hgb (12.9-16.9) g/dL Hct (37.5-50.1) % MCV (83.0-100.0) fL MCH (28.0-33.3) pg MCHC (31.6-35.5) g/dL RDW (11.5-14.5) % Plt Count (140-400) K/mcL MPV (9.4-12.4) fL Immature Gran % (0-4) % Seg Neutrophils % % Lymphocytes % % Monocytes % % Eosinophils % % Basophils % % Neutrophils # (1.6-8.9) K/mcL Lymphocytes # (0.6-4.6) K/mcL Monocytes # (0.0-1.3) K/mcL Eosinophils # (0.0-0.6) K/mcL Basophils # (0.0-0.2) K/mcL PT (9.4-12.1) Seconds INR APTT (26.0-36.0) Seconds D-Dimer 722 H (0-500) ng/mLFEU Sodium (136-145) mEq/L Potassium (3.5-5.1) mEq/L Chloride (98-107) mEq/L Carbon Dioxide (23-29) mEq/L BUN (8-23) mg/dL Creatinine (0.70-1.30) mg/dL Est GFR ( Amer) (> 60) Est GFR (Non-Af Amer) (> 60) BUN/Creatinine Ratio (6-26) Glucose (70-105) mg/dL Calculated Osmolality (280-300) Calcium (8.6-10.3) mg/dL Troponin I (< 0.04) ng/mL - Radiology Data Radiology results reviewed: Yes I reviewed the patient's radiology results. Single view chest x-ray is performed. This does not demonstrate evidence for infiltrate, effusion, pneumothorax, foreign body or heart failure. The cardiac silhouette is normal. I do not see abnormality to the osseous structures of the chest. This is on my interpretation. Impressions Chest X-Ray 05/20/18 08:33 IMPRESSION: Limited study without acute process. If there is continued clinical concern for acute intrathoracic process, follow-up with PA and lateral radiographs with full inspiration may be helpful. D/ / Yi Villa MD / Yi Villa MD Interpreting Provider: Yi Villa MD Impressions Chest X-Ray 05/20/18 08:33 IMPRESSION: Limited study without acute process. If there is continued clinical concern for acute intrathoracic process, follow-up with PA and lateral radiographs with full inspiration may be helpful. D/ / Yi Villa MD / Yi Villa MD Interpreting Provider: Yi Villa MD Chest CTA 05/20/18 09:53 IMPRESSION: No evidence of pulmonary embolism or acute pulmonary abnormality. D/ / Paulo Baker MD / Paulo Baker MD Interpreting Provider: Paulo Baker MD - EKG Data EKG attestation: Yes I reviewed and interpreted this EKG. EKG shows normal: sinus rhythm, axis, intervals, QRS complexes, ST-T waves Rate: normal (62) Interpretation: no acute changes, normal EKG Heart Score - Score History: Moderately Suspicious EKG: Normal Age: Greater than 65 Risk Factors: Equal/Greater than 3 risk factor or history of atherosclerotic disease Troponin: Less than normal limit HEART Score Total: 5
[2018-05-20 09:02] LABS: Prothrombin Time 22.3 Seconds (9.4-12.1)
[2018-05-20 09:05] LABS: Activated Partial Thrombo Time 36.3 Seconds (26.0-36.0)
[2018-05-20 09:14] LABS: Troponin I < 0.03 ng/mL (< 0.04)
[2018-05-20 09:42] LABS: BUN/Creatinine Ratio 9 (6-26); Blood Urea Nitrogen 11 mg/dL (8-23); Calcium 9.5 mg/dL (8.6-10.3); Carbon Dioxide 25 mEq/L (23-29); Chloride 94 mEq/L (98-107); Glucose 106 mg/dL (70-105); Osmolality,Calculated 262 (280-300); Potassium 4.6 mEq/L (3.5-5.1); Sodium 126 mEq/L (136-145); eGFR For Non-African Americans > 60 (> 60)
[2018-05-20] MEDS ORDERED: 0.9 % Sodium Chloride 1,000 ML IVC SCH ×2 (09:45→12:44)
[2018-05-20] MEDS ORDERED: Isovue-370 500 ML INFUS..BTL IV ONE ×2 (09:53→12:44)
[2018-05-20] MEDS ORDERED: Nitroglycerin 0.4 MG TAB.SUBL SL PRN (12:44)
[2018-05-20] MEDS ORDERED: Naloxone 0.4 MG/ML INJ IVP PRN (12:44)
--- NOTE | 2018-05-20 15:41 | Internal Med History&Physical ---
Date of Encounter: 05/20/18 Time of Encounter: 15:15 Assessment and Plan (1) Chest pain Current visit: Yes Status: Acute Doubt myocardial ischemia from history and physical. Repeat cardiac enzymes were ordered through emergency room. Qualifiers: Chest pain type: precordial pain Qualified Code(s): R07.2 - Precordial pain (2) Bronchitis Current visit: Yes Status: Acute Will order symptomatic treatment with Robitussin-DM and loratadine. (3) Anxiety Current visit: No Status: Chronic Continue BuSpar. 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 CTA negative for PE (5) Hypertension Current visit: No Status: Acute Continue lisinopril. Qualifiers: Hypertension type: essential hypertension Qualified Code(s): I10 - Essential (primary) hypertension (6) Hyponatremia with normal extracellular fluid volume Current visit: No Status: Acute Asymptomatic. Present on most labs since January 2014. Continue to monitor. Internal Medicine - H&P: HPI Chief complaint: Cough, chest discomfort Admitted From: Emergency Dept Plans for Post Hospital Care: Home History of present illness: Mr. Peralta is a 77 year old male who came to emergency room stating he had onset of cough approximately 2 weeks ago. He was diagnosed with bronchitis. When symptoms did not improve initially he was prescribed doxycycline and Mucinex. He reports a single episode of vomiting on May 16 without visible blood. He denies diarrhea. He developed some left parasternal discomfort that he describes as a pressure sensation approximately 3 days ago. It was constant and did not significantly radiate. He came to emergency room and was evaluated and admitted to [facility] floor for ongoing care needs. He states his left parasternal discomfort has significantly lessened. His cough is productive of whitish phlegm. Cardiovascular history is significant for hypertension. He does not get angina or anginal equivalents on exertion including push mowing his yard. He reports an NM June 2010 with a single stent placed post NM. He had pulmonary emboli in 2011 and August 2016 and is now on lifelong Coumadin. Echocardiogram 03/18/2017 showed LVEF of 60-65% with no significant valvular abnormality. There was mild diastolic dysfunction reported with E/A ratio 0.8. Past Med Surg Social Fam HX - Past Medical History Medical history: arthritis, CHF, coronary artery disease, DVT, GERD, hyperlipidemia, hypertension, myocardial infarction, peripheral artery disease, pulmonary embolus, seizures Additional medical history: PROSTITIS , PE 2016 PLACED ON COUMADIN, LOW SODIUM Psychiatric history: anxiety, depression - Past Surgical History Surgical History: angioplasty/stent, appendectomy, cholecystectomy, knee replacement Additional surgical history: Left knee replacement. CARDIAC STENT X 1 2010( DR DEMPSEY) [facility] - Social History Smoking Status: Former smoker Smokeless Tobacco Status: No Alcohol use: none Drug use: none - Family History Father Adopted: No Family Member Ethnicity: Non- Living Status: Hx Family Cardiac Disorders: Yes Hx Family Respiratory Disorders: No Hx Family Cancer: No Hx Family GI Disorders: No Hx Family Endocrine Disorder: No Hx Family Neuromuscular Disorders: No Hx Family Neurologic Disorders: No Hx Family HEENT Disorders: No Hx Family Autoimmune Disorders: No Mother Adopted: No Family Member Ethnicity: Non- Living Status: Hx Family Cardiac Disorders: Yes Hx Family Respiratory Disorders: No Hx Family Cancer: No Hx Family GI Disorders: No Hx Family Endocrine Disorder: No Hx Family Neuromuscular Disorders: No Hx Family Neurologic Disorders: No Hx Family HEENT Disorders: No Hx Family Autoimmune Disorders: No Internal Medicine - H&P: Meds Aspirin 81 mg PO DAILY 05/12/15 [History] Atorvastatin [Lipitor] 80 mg PO HS 05/12/15 [History] Carvedilol [Coreg] 6.25 mg PO BIDWM 05/12/15 [History] Lansoprazole [Prevacid] 30 mg PO DAILY 05/12/15 [History] Lisinopril [Zestril] 10 mg PO DAILY 05/12/15 [History] Cholecalciferol (D-3) [Vitamin D] 3,000 unit PO DAILY 07/19/16 [History] Fluticasone Propionate Nasal [Flonase] 2 spray NS BID 07/19/16 [History] Omega3,5,6,7,9 No.1/[place] Oil [Complete [place] Softgel] 2 each PO QAM 08/14/16 [History] Lactobacillus [Culturelle] 1 each PO BID #10 cap.sprink 08/20/17 [Rx] Buspirone HCl [Buspar] 7.5 mg PO BID 11/30/17 [History] Nitroglycerin [Nitrostat] 0.4 mg SL Q5M PRN #1 vial 12/01/17 [Rx] Warfarin [Coumadin] 2.5 mg PO TUSA 01/02/18 [History] Warfarin [Coumadin] 5 mg PO SUMOWETHFR 01/02/18 [History] Allergy/AdvReac Type Severity Reaction Status Date / Time morphine Allergy Hives Verified 01/02/18 23:09 Penicillins [PCN] Allergy Hives Verified 01/02/18 23:09 propoxyphene [From Darvon] Allergy Hives Verified 01/02/18 23:09 All Systems PM: A 10-system review of systems was performed and is negative for pertinent findings except as documented above in the HPI. Review of systems: Review of systems from his November 2017 [facility] hospitalization were reviewed and revised as below. Gen.: His weight has minimally changed at approximately 84 kg since April 2016 hospitalization. Cardiovascular: As per history of present illness Respiratory: He smoked from age [age] but denies chronic lung disease and does not wear home oxygen. GI: He has had cholecystectomy and has GERD but denies disorders of his liver or exocrine pancreas. He has history of hiatal hernia. : He has remote history of kidney stones. He denies other kidney or bladder disorders. Neurologic: He has history of seizure disorder with last seizure approximately 30 years ago. He denies large distribution strokes. Endocrine: He was diagnosed with DM 2 approximately 2004. He states it is diet- controlled. Hemoglobin A1c was 5.4% on 07/19/2017. He has hyperlipidemia but no known thyroid disease Hematology/oncology: Denies blood disorders or internal cancers. He did have mild anemia on emergency room labs at the April 2016 visit but now resolved Psychiatric: He denies anxiety depression or other mental health issues Musk skeletal: He has DJD but no known gout or osteoporosis. - Constitutional Vitals: Temp Pulse Resp BP Pulse Ox 98.1 F 83 15 138/76 96 05/20/18 15:33 05/20/18 15:33 05/20/18 15:33 05/20/18 15:33 05/20/18 15:33 Exam: Gen.: He is a well-developed well-nourished male lying in bed who appears in no significant distress HEENT: Head is atraumatic and normocephalic. Eyes: EOMI. There is no scleral icterus. Mouth: Mucosa is moist. Neck: Supple and nontender. There is no thyromegaly or adenopathy noted. Heart: Regular without murmurs gallops or ectopics Lungs: No wheezes or crackles are heard. Abdomen: Soft and nontender. No masses or guarding are noted. Extremities: There is no cyanosis edema or clubbing noted. Dorsalis pedis and posttibial pulses are 1-2 over 2 bilaterally. Neurologic: Mental status: He is talkative and a good historian. Cranial nerves: Smile is symmetric. Forehead wrinkles bilaterally. Tongue protrudes midline. EOMI. Motor: There is no pronator drift. Cerebellar: Finger to nose is intact bilaterally. Skin: Warm and dry Internal Med - H&P Results - Labs CBC & Chem 7: 05/20/18 08:46 05/20/18 08:46 Labs: Short CBC 05/20/18 Range/Units 08:46 WBC 8.0 (4.3-11.1) K/mcL Hgb 14.0 (12.9-16.9) g/dL Hct 38.2 (37.5-50.1) % Plt Count 271 (140-400) K/mcL Neutrophils # 4.7 (1.6-8.9) K/mcL BMP 05/20/18 08:46 Sodium 126 L Potassium 4.6 Chloride 94 L Carbon Dioxide 25 BUN 11 Creatinine 1.16 Glucose 106 H Calcium 9.5 Cardiac Enzymes 05/20/18 05/20/18 Range/Units 08:46 13:08 Troponin I < 0.03 < 0.03 (< 0.04) ng/mL - Impressions ITS Impressions Chest X-Ray 05/20/18 08:33 IMPRESSION: Limited study without acute process. If there is continued clinical concern for acute intrathoracic process, follow-up with PA and lateral radiographs with full inspiration may be helpful. D/ / Yi Villa MD / Yi Villa MD Interpreting Provider: Yi Villa MD Chest CTA 05/20/18 09:53 IMPRESSION: No evidence of pulmonary embolism or acute pulmonary abnormality. D/ / Paulo Baker MD / Paulo Baker MD Interpreting Provider: Paulo Baker MD
[2018-05-20] MEDS: Loratadine 10 MG TABLET PO SCH (16:57)
[2018-05-20] MEDS ORDERED: *HR* Warfarin 5 MG TABLET PO SCH (18:00)
[2018-05-20] MEDS: Lactobacillus 1 EACH CAP.SPRINK PO SCH (20:45)
[2018-05-20] MEDS: Fluticasone Propionate Nasal 50 MCG/SPRAY BOTTLE NS SCH (20:45)
[2018-05-20] MEDS: 0.9 % Sodium Chloride 1,000 ML IVC SCH (23:04)
[2018-05-21 01:15] LABS: Basophils % 0.4 %; Eosinophils # 0.1 K/mcL (0.0-0.6); Eosinophils % 0.9 %; Hematocrit 34.3 % (37.5-50.1); Hemoglobin 12.3 g/dL (12.9-16.9); Immature Granulocytes % 0.2 % (0-4); Lymphocytes # 2.7 K/mcL (0.6-4.6); Lymphocytes % 31.2 %; Mean Corpuscular HGB Conc 35.9 g/dL (31.6-35.5); Mean Corpuscular Hemoglobin 30.8 pg (28.0-33.3); Mean Corpuscular Volume 85.8 fL (83.0-100.0); Mean Platelet Volume 8.8 fL (9.4-12.4); Monocytes # 0.8 K/mcL (0.0-1.3); Monocytes % 9.2 %; Platelet Count 232 K/mcL (140-400); Red Cell Distribution Width 12.8 % (11.5-14.5); Segmented Neutrophils % 58.1 %
[2018-05-21 06:49] VITALS: BP 123/68
[2018-05-21] MEDS: Fluticasone Propionate Nasal 50 MCG/SPRAY BOTTLE NS SCH (08:08)
[2018-05-21] MEDS ORDERED: MOM Conc 10 ML UD.LIQ PO ONE (08:09)
[2018-05-21] MEDS: Lactobacillus 1 EACH CAP.SPRINK PO SCH (08:09)
[2018-05-21] MEDS: Loratadine 10 MG TABLET PO SCH (08:09)
[2018-05-21] MEDS ORDERED: Ondansetron 4 MG/2 ML VIAL IVP PRN (08:13)
[2018-05-21] MEDS: 0.9 % Sodium Chloride 1,000 ML IVC SCH (08:46)
[2018-05-21] MEDS ORDERED: Aspirin 81 MG TAB.CHEW PO SCH (09:00)
[2018-05-21] MEDS ORDERED: Cholecalciferol (D-3) 1,000 UNIT TABLET PO SCH (09:00)
[2018-05-21] MEDS ORDERED: [UNRECOGNIZED DRUG - REMARK] PO SCH (09:00)
--- NOTE | 2018-05-21 10:03 | Discharge Summary ---
Date of Encounter: 05/21/18 Time of Encounter: 09:54 - Discharge Diagnosis (1) Chest pain Priority: Primary Status: Acute Qualifiers: Chest pain type: precordial pain Qualified Code(s): R07.2 - Precordial pain (2) Bronchitis Priority: Secondary Status: Acute (3) Anxiety Priority: Secondary Status: Chronic (4) Pulmonary embolism and infarction Priority: Secondary Status: Chronic (5) Hypertension Priority: Secondary Status: Acute Qualifiers: Hypertension type: essential hypertension Qualified Code(s): I10 - Essential (primary) hypertension (6) Hyponatremia with normal extracellular fluid volume Priority: Secondary Status: Chronic Hospital course: Mr. Peralta is a 77 year old male who came to emergency room stating he had onset of cough approximately 2 weeks ago. He was diagnosed with bronchitis. When symptoms did not improve initially he was prescribed doxycycline and Mucinex. He reports a single episode of vomiting on May 16 without visible blood. He denies diarrhea. He developed some left parasternal discomfort that he describes as a pressure sensation approximately 3 days ago. It was constant and did not significantly radiate. He came to emergency room and was evaluated and admitted to [facility] for ongoing care needs. Initial orders were written by the emergency room physician. I saw him on May 20 and performed a history and physical. Repeat cardiac enzymes showed no evidence of myocardial damage. When I saw him I did not think pain was likely be of myocardial ischemic origin. The etiology of the pain was not determined with certainty. He felt significantly improved on May 21 and stable for discharge home. He was treated symptomatically for bronchitis with Robitussin-DM and loratadine. These can be continued at discharge as needed. He will follow with his PCP Dr. Beto Guzman within 1 week. - Time Spent with Patient Total time spent providing and/or coordinating discharge services: - Discharge Medications Home Medications: Aspirin 81 mg PO DAILY 05/12/15 [History] Atorvastatin [Lipitor] 80 mg PO HS 05/12/15 [History] Carvedilol [Coreg] 6.25 mg PO BIDWM 05/12/15 [History] Lansoprazole [Prevacid] 30 mg PO DAILY 05/12/15 [History] Lisinopril [Zestril] 10 mg PO DAILY 05/12/15 [History] Cholecalciferol (D-3) [Vitamin D] 3,000 unit PO DAILY 07/19/16 [History] Fluticasone Propionate Nasal [Flonase] 2 spray NS BID 07/19/16 [History] Omega3,5,6,7,9 No.1/[place] Oil [Complete [place] Softgel] 2 each PO QAM 08/14/16 [History] Lactobacillus [Culturelle] 1 each PO BID #10 cap.sprink 08/20/17 [Rx] Buspirone HCl [Buspar] 7.5 mg PO BID 11/30/17 [History] Nitroglycerin [Nitrostat] 0.4 mg SL Q5M PRN #1 vial 12/01/17 [Rx] Warfarin [Coumadin] 2.5 mg PO TUSA 01/02/18 [History] Warfarin [Coumadin] 5 mg PO SUMOWETHFR 01/02/18 [History] Allergies/Adverse Reactions: Allergy/AdvReac Type Severity Reaction Status Date / Time morphine Allergy Hives Verified 01/02/18 23:09 Penicillins [PCN] Allergy Hives Verified 01/02/18 23:09 propoxyphene [From Darvon] Allergy Hives Verified 01/02/18 23:09 Date of admission: 05/20/18 11:10 Primary care physician: Beto Guzman MD Consults: 05/20/18 13:12 Consult to Nutrition [CONS] Routine Comment: Consulting Provider: NUTRITION Reason for Dietary Consult: MST Score - Constitutional Vitals: Temp Pulse Resp BP Pulse Ox 98.2 F 90 16 123/68 96 05/21/18 06:48 05/21/18 06:48 05/21/18 06:48 05/21/18 06:48 05/21/18 08:23 - Patient Status Disposition: Home, Self-Care Condition: Fair - Discharge Instructions Follow Up With: Beto Guzman MD [Primary Care Provider] - 1 week - Diet and Activity Activity: resume usual activities as tolerated Diet: advance to your usual diet
[2018-05-21] MEDS ORDERED: *HR* Warfarin 5 MG TABLET PO SCH (18:00)
--- NOTE | 2018-05-22 09:02 | Electrocardiograph Report ---
[address] [address] Test Date: 2018-05-20 Pat Name: Delta Peralta Department: [id number] Room: [facility] Gender: M [employer] Manager: [id number] : 1940 Requested By: Sachin Otero Order Number: [id number] Reading MD: Jimmy Hernandez Measurements Intervals [place] Rate: 62 P: 39 HI: 209 QRS: 55 QRSD: 98 T: 0 QT: 378 QTc: 383 Interpretive Statements SINUS RHYTHM Electronically Signed On 05-22-2018 9:00:36 EST by Jimmy Hernandez
== END 2018-05-21 11:12 | disposition home or self-care (01) ==
LOC: INPPIK 08:28 → EMEROOPIK 08:28 → INPPIK 12:18
PROVIDERS: ADMIT Internal Medicine; ATTEND Internal Medicine

== ENCOUNTER 2020-08-08 03:44 | Observation (INO) ==
[2020-08-08 04:34] LABS: Basophils % 0.3 %; Eosinophils # 0.2 K/mcL (0.0-0.6); Eosinophils % 3.1 %; Hematocrit 31.6 % (37.5-50.1); Hemoglobin 11.5 g/dL (12.9-16.9); Immature Granulocytes % 0.3 % (0-4); Lymphocytes # 1.7 K/mcL (0.6-4.6); Mean Corpuscular HGB Conc 36.4 g/dL (31.6-35.5); Mean Corpuscular Hemoglobin 31.7 pg (28.0-33.3); Mean Corpuscular Volume 87.1 fL (83.0-100.0); Mean Platelet Volume 8.9 fL (9.4-12.4); Monocytes # 0.8 K/mcL (0.0-1.3); Monocytes % 13.5 %; Neutrophils # 3.4 K/mcL (1.6-8.9); Platelet Count 219 K/mcL (140-400); Red Blood Count 3.63 M/mcL (4.19-5.50); Red Cell Distribution Width 13.6 % (11.5-14.5); Segmented Neutrophils % 54.8 %; White Blood Count 6.1 K/mcL (4.3-11.1)
[2020-08-08 04:51] LABS: INR 3.2; Prothrombin Time 35.6 Seconds (9.4-12.1)
[2020-08-08 04:55] LABS: Troponin I < 0.03 ng/mL (< 0.04)
[2020-08-08 05:19] LABS: Alanine Aminotransferase 13 Units/L (7-52); Albumin 3.8 g/dL (3.5-5.7); Albumin/Globulin Ratio 1.6 (1.1-2.2); Alkaline Phosphatase 28 Units/L (34-104); Amylase 68 Units/L (29-103); Aspartate Amino Transferase 16 Units/L (13-39); BUN/Creatinine Ratio 10 (6-26); Bilirubin,Direct 0.1 mg/dL (0.0-0.2); Bilirubin,Indirect 0.3 mg/dL (0.0-1.0); Bilirubin,Total 0.4 mg/dL (0.3-1.0); Blood Urea Nitrogen 9 mg/dL (8-23); Calcium 9.3 mg/dL (8.6-10.3); Carbon Dioxide 28 mEq/L (23-29); Chloride 91 mEq/L (98-107); Globulin 2.4 g/dL (2.4-3.5); Glucose 92 mg/dL (70-105); Lipase 38 Units/L (11-82); Osmolality,Calculated 256 (280-300); Potassium 4.3 mEq/L (3.5-5.1); Sodium 124 mEq/L (136-145); Total Protein 6.2 g/dL (6.4-8.9); eGFR For African Americans > 60 (> 60); eGFR For Non-African Americans > 60 (> 60)
[2020-08-08] MEDS ORDERED: 0.9 % Sodium Chloride 500 ML IVC ONE (05:26)
[2020-08-08] MEDS ORDERED: 0.9 % Sodium Chloride 1,000 ML IVC SCH (05:30)
[2020-08-08] MEDS ORDERED: Ondansetron ODT 4 MG TAB.RAPDIS SL PRN (06:21)
[2020-08-08] MEDS ORDERED: Melatonin 3 MG TABLET PO PRN (06:21)
[2020-08-08] MEDS ORDERED: Naloxone 0.4 MG/ML INJ IVP PRN (06:21)
[2020-08-08] MEDS ORDERED: Mag Hydrox/Al Hydrox/Simeth 30 ML UDC PO PRN (06:21)
[2020-08-08] MEDS ORDERED: MOM Conc 10 ML UD.LIQ PO PRN (06:21)
[2020-08-08] MEDS: 0.9 % Sodium Chloride 1,000 ML IVC SCH ×2 (06:37→15:44)
[2020-08-08] MEDS ORDERED: Acetaminophen 325 MG TABLET PO PRN (07:21)
[2020-08-08 08:22] LABS: BUN/Creatinine Ratio 9 (6-26); Blood Urea Nitrogen 8 mg/dL (8-23); Carbon Dioxide 27 mEq/L (23-29); Chloride 95 mEq/L (98-107); Glucose 87 mg/dL (70-105); Osmolality,Calculated 262 (280-300); Potassium 4.3 mEq/L (3.5-5.1); Sodium 127 mEq/L (136-145); eGFR For African Americans > 60 (> 60); eGFR For Non-African Americans > 60 (> 60)
[2020-08-08] MEDS ORDERED: Psyllium 1 PACKET POWD.PACK PO PRN (09:51)
[2020-08-08] MEDS ORDERED: carvediloL 6.25 MG TABLET PO SCH (09:51)
[2020-08-08] MEDS ORDERED: Saline Nasal Spray 44 ML BOTTLE NS PRN (09:52)
[2020-08-08 10:13] LABS: Bilirubin,Urine Negative (Negative); Blood,Urine Small (Negative); Clarity,Urine Clear (Clear); Glucose,Urine (UA) Normal (Normal); Ketones,Urine Negative (Negative); Leukocyte Esterase,Urine Negative (Negative); Nitrite,Urine Negative (Negative); Protein,Urine Negative (Neg-Trace); Specific Gravity,Urine 1.015 (1.010-1.025); Urobilinogen,Urine Normal (Normal)
[2020-08-08 10:41] LABS: Color,Urine Light Yellow (Yellow)
[2020-08-08 10:42] LABS: Bacteria,Urine None Seen per hpf (None-Few); RBC,Urine 0-3 per hpf (0-3)
[2020-08-08] MEDS: Cholecalciferol (D-3) 1,000 UNIT (25MCG) TABLET PO SCH (10:59)
[2020-08-08] MEDS: lisinopriL 10 MG TABLET PO SCH (11:00)
[2020-08-08] MEDS: Aspirin 81 MG TAB.CHEW PO SCH (11:00)
[2020-08-08] MEDS: Fluticasone Propionate Nasal 50 MCG/SPRAY BOTTLE NS SCH ×2 (11:07→20:16)
[2020-08-08 16:14] LABS: BUN/Creatinine Ratio 10 (6-26); Blood Urea Nitrogen 11 mg/dL (8-23); Carbon Dioxide 24 mEq/L (23-29); Chloride 97 mEq/L (98-107); Glucose 104 mg/dL (70-105); Osmolality,Calculated 266 (280-300); Potassium 4.3 mEq/L (3.5-5.1); Sodium 128 mEq/L (136-145); eGFR For African Americans > 60 (> 60); eGFR For Non-African Americans > 60 (> 60)
[2020-08-08] MEDS: carvediloL 6.25 MG TABLET PO SCH (17:31)
[2020-08-08] MEDS ORDERED: Warfarin perPT PO PRN (18:00)
[2020-08-08] MEDS ORDERED: *HR* Warfarin 5 MG TABLET PO SCH (18:00)
[2020-08-09] MEDS: 0.9 % Sodium Chloride 1,000 ML IVC SCH (01:33)
[2020-08-09 06:41] VITALS: BP 149/76
[2020-08-09] MEDS: Aspirin 81 MG TAB.CHEW PO SCH (08:13)
[2020-08-09] MEDS: Cholecalciferol (D-3) 1,000 UNIT (25MCG) TABLET PO SCH (08:13)
[2020-08-09] MEDS: Fluticasone Propionate Nasal 50 MCG/SPRAY BOTTLE NS SCH (08:13)
[2020-08-09] MEDS: lisinopriL 10 MG TABLET PO SCH (08:13)
[2020-08-09] MEDS: carvediloL 6.25 MG TABLET PO SCH (08:13)
[2020-08-09 08:30] LABS: Basophils % 0.6 %; Eosinophils # 0.3 K/mcL (0.0-0.6); Eosinophils % 3.9 %; Hematocrit 31.3 % (37.5-50.1); Hemoglobin 11.1 g/dL (12.9-16.9); Immature Granulocytes % 0.3 % (0-4); Lymphocytes # 1.9 K/mcL (0.6-4.6); Lymphocytes % 28.9 %; Mean Corpuscular HGB Conc 35.5 g/dL (31.6-35.5); Mean Corpuscular Hemoglobin 31.4 pg (28.0-33.3); Mean Corpuscular Volume 88.4 fL (83.0-100.0); Mean Platelet Volume 9.4 fL (9.4-12.4); Monocytes # 0.4 K/mcL (0.0-1.3); Monocytes % 6.8 %; Neutrophils # 3.8 K/mcL (1.6-8.9); Platelet Count 231 K/mcL (140-400); Red Blood Count 3.54 M/mcL (4.19-5.50); Red Cell Distribution Width 14.1 % (11.5-14.5); Segmented Neutrophils % 59.5 %; White Blood Count 6.4 K/mcL (4.3-11.1)
[2020-08-09 08:52] LABS: BUN/Creatinine Ratio 11 (6-26); Blood Urea Nitrogen 11 mg/dL (8-23); Carbon Dioxide 28 mEq/L (23-29); Chloride 100 mEq/L (98-107); Glucose 120 mg/dL (70-105); INR 2.5; Osmolality,Calculated 273 (280-300); Potassium 4.2 mEq/L (3.5-5.1); Prothrombin Time 28.4 Seconds (9.4-12.1); Sodium 131 mEq/L (136-145); eGFR For African Americans > 60 (> 60); eGFR For Non-African Americans > 60 (> 60)
[2020-08-09 09:00] LABS: Calcium 8.8 mg/dL (8.6-10.3)
[2020-08-09] MEDS ORDERED: *HR* Warfarin 2 MG TABLET PO ONE (18:00)
== END 2020-08-09 13:20 | disposition home health service (06) ==
LOC: EMEROOPIK 03:44 → INPPIK 03:44
PROVIDERS: ADMIT Family Medicine; ATTEND Family Medicine

== ENCOUNTER 2020-11-11 01:47 | Observation (INO) ==
[2020-11-11 02:49] LABS: Basophils % 0.3 %; Eosinophils # 0.1 K/mcL (0.0-0.6); Eosinophils % 1.6 %; Hematocrit 32.7 % (37.5-50.1); Hemoglobin 11.9 g/dL (12.9-16.9); Immature Granulocytes % 0.1 % (0-4); Lymphocytes # 2.3 K/mcL (0.6-4.6); Lymphocytes % 30.2 %; Mean Corpuscular HGB Conc 36.4 g/dL (31.6-35.5); Mean Corpuscular Hemoglobin 31.2 pg (28.0-33.3); Mean Corpuscular Volume 85.6 fL (83.0-100.0); Mean Platelet Volume 9.2 fL (9.4-12.4); Monocytes # 0.7 K/mcL (0.0-1.3); Monocytes % 9.1 %; Neutrophils # 4.4 K/mcL (1.6-8.9); Platelet Count 228 K/mcL (140-400); Red Blood Count 3.82 M/mcL (4.19-5.50); Red Cell Distribution Width 13.1 % (11.5-14.5); Segmented Neutrophils % 58.7 %; White Blood Count 7.5 K/mcL (4.3-11.1)
[2020-11-11 02:58] LABS: Prothrombin Time 33.4 Seconds (9.4-12.1)
[2020-11-11 03:07] LABS: Calcium 9.2 mg/dL (8.6-10.3); Potassium 5.1 mEq/L (3.5-5.1)
[2020-11-11] MEDS ORDERED: Isovue-370 500 ML BOTTLE IVP ONE (03:07)
[2020-11-11] MEDS ORDERED: 0.9 % Sodium Chloride 1,000 ML IVC ONE ×2 (03:21→08:10)
[2020-11-11] MEDS ORDERED: 0.9 % Sodium Chloride 1,000 ML ONE (03:21)
[2020-11-11] MEDS ORDERED: 0.9 % Sodium Chloride 1,000 ML IVC SCH (04:45)
[2020-11-11] MEDS ORDERED: Naloxone 0.4 MG/ML INJ IVP PRN ×2 (05:16→08:10)
[2020-11-11] MEDS ORDERED: Melatonin 3 MG TABLET PO PRN (08:10)
[2020-11-11] MEDS ORDERED: Nitroglycerin 0.4 MG TAB.SUBL SL PRN (08:10)
[2020-11-11] MEDS: *HR* LORazepam 0.5 MG TABLET PO SCH ×2 (08:54→20:59)
[2020-11-11] MEDS: Fluticasone Propionate Nasal 50 MCG/SPRAY BOTTLE NS SCH ×2 (08:55→21:00)
[2020-11-11] MEDS: Cholecalciferol (D-3) 1,000 UNIT (25MCG) TABLET PO SCH (08:55)
[2020-11-11] MEDS: 0.9 % Sodium Chloride 1,000 ML IVC SCH ×2 (08:56→18:55)
[2020-11-11] MEDS: carvediloL 6.25 MG TABLET PO SCH ×2 (08:57→16:59)
[2020-11-11] MEDS ORDERED: Sulfamethoxazole/Trimeth DS 1 EACH TABLET PO SCH (09:00)
[2020-11-11] MEDS ORDERED: lisinopriL 10 MG TABLET PO SCH (09:00)
[2020-11-11 12:48] LABS: Bilirubin,Urine Negative (Negative); Blood,Urine Trace-intact (Negative); Clarity,Urine Clear (Clear); Color,Urine Yellow (Yellow); Glucose,Urine (UA) Normal (Normal); Ketones,Urine Negative (Negative); Leukocyte Esterase,Urine Negative (Negative); Nitrite,Urine Negative (Negative); PH,Urine 6.5 pH Units (5.0-8.0); Protein,Urine Negative (Neg-Trace); Urobilinogen,Urine Normal (Normal)
[2020-11-11 13:16] LABS: Bacteria,Urine None Seen per hpf (None-Few); RBC,Urine 0-3 per hpf (0-3)
[2020-11-11] MEDS ORDERED: Warfarin perPT PO PRN (14:02)
[2020-11-11 15:07] LABS: BUN/Creatinine Ratio 13 (6-26); Blood Urea Nitrogen 17 mg/dL (8-23); Calcium 8.7 mg/dL (8.6-10.3); Carbon Dioxide 24 mEq/L (23-29); Chloride 95 mEq/L (98-107); Glucose 98 mg/dL (70-105); Osmolality,Calculated 260 (280-300); Potassium 4.7 mEq/L (3.5-5.1); Sodium 124 mEq/L (136-145); eGFR For African Americans > 60 (> 60); eGFR For Non-African Americans 53 (> 60)
[2020-11-11 17:39] LABS: Adenovirus Not Detected (Not Detect); Bordetella Pertussis Not Detected (Not Detect); Chlamydophila pneumoniae Not Detected (Not Detect); Coronavirus 229E Not Detected (Not Detect); Coronavirus HKU1 Not Detected (Not Detect); Coronavirus NL63 Not Detected (Not Detect); Coronavirus OC43 Not Detected (Not Detect); Human Metapneumovirus Not Detected (Not Detect); Human Rhinovirus/Enterovirus Not Detected (Not Detect); Influenza A Subtype 2009 H1 Not Detected (Not Detect); Influenza B Not Detected (Not Detect); Mycoplasma pneumoniae Not Detected (Not Detect); Parainfluenza Virus 1 Not Detected (Not Detect); Parainfluenza Virus 2 Not Detected (Not Detect); Parainfluenza Virus 3 Not Detected (Not Detect); Parainfluenza Virus 4 Not Detected (Not Detect); Respiratory Syncytial Virus Not Detected (Not Detect); SARS-CoV-2 Not Detected (Not Detect)
[2020-11-11 17:50] LABS: Calcium 9.2 mg/dL (8.6-10.3); Potassium 5.1 mEq/L (3.5-5.1)
[2020-11-11] MEDS ORDERED: *HR* Warfarin 5 MG TABLET PO SCH (18:00)
[2020-11-11] MEDS ORDERED: traZODone 50 MG TABLET PO SCH (21:00)
[2020-11-12 05:31] LABS: Basophils % 0.5 %; Eosinophils # 0.2 K/mcL (0.0-0.6); Eosinophils % 2.7 %; Hematocrit 32.7 % (37.5-50.1); Hemoglobin 11.6 g/dL (12.9-16.9); Lymphocytes # 2.7 K/mcL (0.6-4.6); Lymphocytes % 43.1 %; Mean Corpuscular HGB Conc 35.5 g/dL (31.6-35.5); Mean Corpuscular Hemoglobin 30.6 pg (28.0-33.3); Mean Corpuscular Volume 86.3 fL (83.0-100.0); Mean Platelet Volume 9.6 fL (9.4-12.4); Monocytes # 0.6 K/mcL (0.0-1.3); Monocytes % 9.6 %; Neutrophils # 2.8 K/mcL (1.6-8.9); Platelet Count 229 K/mcL (140-400); Red Blood Count 3.79 M/mcL (4.19-5.50); Red Cell Distribution Width 13.1 % (11.5-14.5); Segmented Neutrophils % 44.1 %; White Blood Count 6.4 K/mcL (4.3-11.1)
[2020-11-12 05:45] LABS: INR 2.7; Prothrombin Time 30.8 Seconds (9.4-12.1)
[2020-11-12 05:58] LABS: BUN/Creatinine Ratio 14 (6-26); Blood Urea Nitrogen 17 mg/dL (8-23); Calcium 8.7 mg/dL (8.6-10.3); Carbon Dioxide 25 mEq/L (23-29); Chloride 101 mEq/L (98-107); Glucose 77 mg/dL (70-105); Osmolality,Calculated 268 (280-300); Sodium 129 mEq/L (136-145); eGFR For African Americans > 60 (> 60); eGFR For Non-African Americans 59 (> 60)
[2020-11-12] MEDS: *HR* LORazepam 0.5 MG TABLET PO SCH (08:08)
[2020-11-12] MEDS: carvediloL 6.25 MG TABLET PO SCH (08:08)
[2020-11-12] MEDS: Cholecalciferol (D-3) 1,000 UNIT (25MCG) TABLET PO SCH (08:08)
[2020-11-12] MEDS: Fluticasone Propionate Nasal 50 MCG/SPRAY BOTTLE NS SCH (08:10)
[2020-11-12 13:36] VITALS: BP 118/65
[2020-11-12 14:56] LABS: BUN/Creatinine Ratio 11 (6-26); Blood Urea Nitrogen 15 mg/dL (8-23); Carbon Dioxide 26 mEq/L (23-29); Chloride 101 mEq/L (98-107); Glucose 100 mg/dL (70-105); Osmolality,Calculated 273 (280-300); Potassium 4.9 mEq/L (3.5-5.1); Sodium 131 mEq/L (136-145); eGFR For African Americans > 60 (> 60); eGFR For Non-African Americans 50 (> 60)
== END 2020-11-12 16:03 | disposition home or self-care (01) ==
LOC: EMEROOPIK 01:47 → INPPIK 01:47
PROVIDERS: ADMIT Family Medicine; ATTEND Family Medicine

== ENCOUNTER 2020-11-15 07:37 | Observation (INO) ==
[2020-11-15 08:13] LABS: Bilirubin,Urine Negative (Negative); Blood,Urine Small (Negative); Clarity,Urine Clear (Clear); Color,Urine Yellow (Yellow); Glucose,Urine (UA) Normal (Normal); Ketones,Urine Negative (Negative); Leukocyte Esterase,Urine Negative (Negative); Nitrite,Urine Negative (Negative); Protein,Urine Negative (Neg-Trace); Urobilinogen,Urine Normal (Normal)
[2020-11-15 08:27] LABS: Basophils % 0.5 %; Eosinophils # 0.1 K/mcL (0.0-0.6); Eosinophils % 1.7 %; Hematocrit 32.6 % (37.5-50.1); Hemoglobin 11.7 g/dL (12.9-16.9); Immature Granulocytes % 0.2 % (0-4); Lymphocytes % 32.3 %; Mean Corpuscular HGB Conc 35.9 g/dL (31.6-35.5); Mean Corpuscular Hemoglobin 31.2 pg (28.0-33.3); Mean Corpuscular Volume 86.9 fL (83.0-100.0); Monocytes # 0.7 K/mcL (0.0-1.3); Monocytes % 10.3 %; Neutrophils # 3.5 K/mcL (1.6-8.9); Platelet Count 251 K/mcL (140-400); Red Blood Count 3.75 M/mcL (4.19-5.50); Red Cell Distribution Width 13.2 % (11.5-14.5); White Blood Count 6.3 K/mcL (4.3-11.1)
[2020-11-15 08:38] LABS: INR 1.8; Prothrombin Time 20.1 Seconds (9.4-12.1)
[2020-11-15 08:42] LABS: Alanine Aminotransferase 16 Units/L (7-52); Albumin 3.9 g/dL (3.5-5.7); Albumin/Globulin Ratio 1.6 (1.1-2.2); Alkaline Phosphatase 28 Units/L (34-104); Aspartate Amino Transferase 20 Units/L (13-39); BUN/Creatinine Ratio 14 (6-26); Bilirubin,Direct 0.1 mg/dL (0.0-0.2); Bilirubin,Indirect 0.5 mg/dL (0.0-1.0); Bilirubin,Total 0.6 mg/dL (0.3-1.0); Blood Urea Nitrogen 14 mg/dL (8-23); Calcium 9.1 mg/dL (8.6-10.3); Carbon Dioxide 29 mEq/L (23-29); Chloride 93 mEq/L (98-107); Globulin 2.5 g/dL (2.4-3.5); Glucose 89 mg/dL (70-105); Magnesium 1.4 mg/dL (1.6-2.6); Osmolality,Calculated 264 (280-300); Potassium 4.7 mEq/L (3.5-5.1); Sodium 127 mEq/L (136-145); Total Protein 6.4 g/dL (6.4-8.9); eGFR For African Americans > 60 (> 60); eGFR For Non-African Americans > 60 (> 60)
[2020-11-15 08:45] LABS: Troponin I < 0.03 ng/mL (< 0.04)
[2020-11-15] MEDS ORDERED: 0.9 % Sodium Chloride 500 ML IVC ONE (08:48)
[2020-11-15] MEDS ORDERED: Acetaminophen 325 MG TABLET PO PRN (09:18)
[2020-11-15] MEDS ORDERED: Melatonin 3 MG TABLET PO PRN (09:18)
[2020-11-15] MEDS ORDERED: Mag Hydrox/Al Hydrox/Simeth 30 ML UDC PO PRN (09:18)
[2020-11-15] MEDS ORDERED: MOM Conc 10 ML UD.LIQ PO PRN (09:18)
[2020-11-15] MEDS ORDERED: Ondansetron 4 MG/2 ML VIAL IVP PRN (09:18)
[2020-11-15] MEDS ORDERED: Naloxone 0.4 MG/ML INJ IVP PRN (09:18)
[2020-11-15] MEDS: 0.9 % Sodium Chloride 1,000 ML IVC SCH ×2 (09:30→16:57)
[2020-11-15] MEDS ORDERED: Warfarin perPT PO PRN (10:23)
[2020-11-15] MEDS: carvediloL 6.25 MG TABLET PO SCH (16:57)
[2020-11-15] MEDS ORDERED: *HR* Warfarin 5 MG TABLET PO ONE (18:00)
[2020-11-15] MEDS ORDERED: *HR* LORazepam 0.5 MG TABLET PO PRN (18:12)
[2020-11-15] MEDS ORDERED: *HR* LORazepam 0.5 MG TABLET PO SCH (21:00)
[2020-11-15] MEDS: Fluticasone Propionate Nasal 50 MCG/SPRAY BOTTLE NS SCH (21:30)
[2020-11-16] MEDS: 0.9 % Sodium Chloride 1,000 ML IVC SCH (02:43)
[2020-11-16 07:06] LABS: Basophils % 0.5 %; Eosinophils # 0.1 K/mcL (0.0-0.6); Hematocrit 30.8 % (37.5-50.1); Hemoglobin 11.1 g/dL (12.9-16.9); Immature Granulocytes % 0.2 % (0-4); Lymphocytes # 2.4 K/mcL (0.6-4.6); Mean Corpuscular Hemoglobin 31.2 pg (28.0-33.3); Mean Corpuscular Volume 86.5 fL (83.0-100.0); Mean Platelet Volume 9.1 fL (9.4-12.4); Monocytes # 0.6 K/mcL (0.0-1.3); Monocytes % 9.7 %; Neutrophils # 3.2 K/mcL (1.6-8.9); Platelet Count 240 K/mcL (140-400); Red Blood Count 3.56 M/mcL (4.19-5.50); Red Cell Distribution Width 13.1 % (11.5-14.5); Segmented Neutrophils % 49.6 %; White Blood Count 6.4 K/mcL (4.3-11.1)
[2020-11-16 07:14] VITALS: BP 157/67
[2020-11-16 07:20] LABS: INR 1.5; Prothrombin Time 17.6 Seconds (9.4-12.1)
[2020-11-16 07:33] LABS: BUN/Creatinine Ratio 14 (6-26); Blood Urea Nitrogen 13 mg/dL (8-23); Calcium 8.5 mg/dL (8.6-10.3); Carbon Dioxide 27 mEq/L (23-29); Chloride 101 mEq/L (98-107); Glucose 80 mg/dL (70-105); Magnesium 1.7 mg/dL (1.6-2.6); Osmolality,Calculated 273 (280-300); Potassium 4.5 mEq/L (3.5-5.1); Sodium 132 mEq/L (136-145); eGFR For African Americans > 60 (> 60); eGFR For Non-African Americans > 60 (> 60)
[2020-11-16] MEDS ORDERED: Cholecalciferol (D-3) 1,000 UNIT (25MCG) TABLET PO SCH (09:00)
[2020-11-16] MEDS ORDERED: lisinopriL 10 MG TABLET PO SCH (09:00)
[2020-11-16] MEDS: carvediloL 6.25 MG TABLET PO SCH (10:11)
[2020-11-16] MEDS: Fluticasone Propionate Nasal 50 MCG/SPRAY BOTTLE NS SCH (10:18)
[2020-11-16] MEDS ORDERED: *HR* Warfarin 5 MG TABLET PO ONE (18:00)
== END 2020-11-16 15:35 | disposition home or self-care (01) ==
LOC: INPPIK 07:37 → EMEROOPIK 07:37 → INPPIK 10:31
PROVIDERS: ADMIT Family Medicine; ATTEND Family Medicine

== ENCOUNTER 2020-12-30 18:49 | Observation (INO) ==
[2020-12-30] MEDS ORDERED: Ondansetron 4 MG/2 ML VIAL IVP ONE (19:03)
[2020-12-30] MEDS ORDERED: 0.9 % Sodium Chloride 500 ML IVC ONE (19:03)
[2020-12-30] MEDS ORDERED: 0.9 % Sodium Chloride 1,000 ML IVC SCH (19:15)
[2020-12-30 19:24] LABS: Basophils % 0.1 %; Eosinophils # 0.1 K/mcL (0.0-0.6); Eosinophils % 1.7 %; Hematocrit 36.9 % (37.5-50.1); Hemoglobin 13.5 g/dL (12.9-16.9); Immature Granulocytes % 0.1 % (0-4); Lymphocytes # 2.3 K/mcL (0.6-4.6); Lymphocytes % 32.1 %; Mean Corpuscular HGB Conc 36.6 g/dL (31.6-35.5); Mean Corpuscular Hemoglobin 30.4 pg (28.0-33.3); Mean Corpuscular Volume 83.1 fL (83.0-100.0); Mean Platelet Volume 9.3 fL (9.4-12.4); Monocytes # 0.7 K/mcL (0.0-1.3); Monocytes % 9.5 %; Platelet Count 229 K/mcL (140-400); Red Blood Count 4.44 M/mcL (4.19-5.50); Segmented Neutrophils % 56.5 %
[2020-12-30 19:44] LABS: Alanine Aminotransferase 18 Units/L (7-52); Albumin 4.3 g/dL (3.5-5.7); Albumin/Globulin Ratio 1.3 (1.1-2.2); Alkaline Phosphatase 41 Units/L (34-104); Aspartate Amino Transferase 20 Units/L (13-39); BUN/Creatinine Ratio 15 (6-26); Bilirubin,Direct 0.1 mg/dL (0.0-0.2); Bilirubin,Indirect 0.4 mg/dL (0.0-1.0); Bilirubin,Total 0.5 mg/dL (0.3-1.0); Blood Urea Nitrogen 17 mg/dL (8-23); Calcium 9.6 mg/dL (8.6-10.3); Carbon Dioxide 27 mEq/L (23-29); Chloride 87 mEq/L (98-107); Globulin 3.2 g/dL (2.4-3.5); Glucose 130 mg/dL (70-105); Osmolality,Calculated 255 (280-300); Potassium 4.7 mEq/L (3.5-5.1); Sodium 121 mEq/L (136-145); Total Protein 7.5 g/dL (6.4-8.9); Troponin I < 0.03 ng/mL (< 0.04); eGFR For African Americans > 60 (> 60); eGFR For Non-African Americans 60 (> 60)
[2020-12-30] MEDS ORDERED: Naloxone 0.4 MG/ML INJ IVP PRN (20:45)
[2020-12-30] MEDS ORDERED: Melatonin 3 MG TABLET PO PRN (20:45)
[2020-12-30] MEDS ORDERED: Ondansetron ODT 4 MG TAB.RAPDIS SL PRN (20:45)
[2020-12-30] MEDS ORDERED: MOM Conc 10 ML UD.LIQ PO PRN (20:45)
[2020-12-30] MEDS ORDERED: Mag Hydrox/Al Hydrox/Simeth 30 ML UDC PO PRN (20:45)
[2020-12-30] MEDS ORDERED: GuaiFENesin/Pseudophedrine TABLET PO PRN (20:45)
[2020-12-30] MEDS ORDERED: Nitroglycerin 0.4 MG TAB.SUBL SL PRN (20:45)
[2020-12-30] MEDS ORDERED: Warfarin perPT PO SCH (21:00)
[2020-12-30] MEDS ORDERED: *HR* Warfarin 2.5 MG TABLET PO ONE (21:07)
[2020-12-30] MEDS: *HR* LORazepam 0.5 MG TABLET PO SCH (21:20)
[2020-12-30] MEDS: carvediloL 6.25 MG TABLET PO SCH (21:20)
[2020-12-30] MEDS: Sulfamethoxazole/Trimeth DS 1 EACH TABLET PO SCH (21:21)
[2020-12-30] MEDS: 0.9 % Sodium Chloride 1,000 ML IVC SCH (21:25)
[2020-12-30] MEDS: Fluticasone Propionate Nasal 50 MCG/SPRAY BOTTLE NS SCH (21:27)
[2020-12-30 22:37] LABS: Bilirubin,Urine Negative (Negative); Blood,Urine Small (Negative); Clarity,Urine Clear (Clear); Color,Urine Yellow (Yellow); Glucose,Urine (UA) Normal (Normal); Ketones,Urine Negative (Negative); Leukocyte Esterase,Urine Negative (Negative); Nitrite,Urine Negative (Negative); Protein,Urine Negative (Neg-Trace); Specific Gravity,Urine 1.015 (1.010-1.025); Urobilinogen,Urine Normal (Normal)
[2020-12-30 22:43] LABS: WBC,Urine 0-3 per hpf (0-3)
[2020-12-30 23:59] LABS: BUN/Creatinine Ratio 15 (6-26); Blood Urea Nitrogen 16 mg/dL (8-23); Calcium 9.2 mg/dL (8.6-10.3); Carbon Dioxide 25 mEq/L (23-29); Chloride 91 mEq/L (98-107); Glucose 114 mg/dL (70-105); Osmolality,Calculated 256 (280-300); Potassium 4.6 mEq/L (3.5-5.1); Sodium 122 mEq/L (136-145); eGFR For African Americans > 60 (> 60); eGFR For Non-African Americans > 60 (> 60)
[2020-12-31 06:08] LABS: INR 2.3; Prothrombin Time 26.4 Seconds (9.4-12.1)
[2020-12-31 06:18] LABS: BUN/Creatinine Ratio 14 (6-26); Blood Urea Nitrogen 15 mg/dL (8-23); Calcium 8.7 mg/dL (8.6-10.3); Carbon Dioxide 26 mEq/L (23-29); Chloride 97 mEq/L (98-107); Glucose 84 mg/dL (70-105); Osmolality,Calculated 264 (280-300); Potassium 4.5 mEq/L (3.5-5.1); Sodium 127 mEq/L (136-145); eGFR For African Americans > 60 (> 60); eGFR For Non-African Americans > 60 (> 60)
[2020-12-31] MEDS: 0.9 % Sodium Chloride 1,000 ML IVC SCH (06:40)
[2020-12-31] MEDS ORDERED: Cholecalciferol (D-3) 1,000 UNIT (25MCG) TABLET PO SCH (09:00)
[2020-12-31] MEDS ORDERED: lisinopriL 10 MG TABLET PO SCH (09:00)
[2020-12-31] MEDS: Sulfamethoxazole/Trimeth DS 1 EACH TABLET PO SCH (09:41)
[2020-12-31] MEDS: carvediloL 6.25 MG TABLET PO SCH (09:41)
[2020-12-31] MEDS: *HR* LORazepam 0.5 MG TABLET PO SCH (09:42)
[2020-12-31] MEDS: Fluticasone Propionate Nasal 50 MCG/SPRAY BOTTLE NS SCH (09:43)
[2020-12-31] MEDS ORDERED: *HR* LORazepam 0.5 MG TABLET PO PRN (10:01)
[2020-12-31] MEDS ORDERED: lisinopriL 5 MG TABLET PO SCH (10:15)
[2020-12-31 16:08] VITALS: BP 122/64
== END 2020-12-31 16:55 | disposition home or self-care (01) ==
LOC: EMEROOPIK 18:49 → INPPIK 18:49
PROVIDERS: ADMIT Internal Medicine; ATTEND Family Medicine